=== PATIENT | male | born 1950 | race Caucasian/White ===

== ENCOUNTER → 2017-08-18 | Outpatient (CLI) | payer BC ==
[~2017-08-18] MED LIST: ATOR-54 PO; CITA20TA9 PO; GLC/500 PO; IBUP-103 PO; KRIL1CAP7 PO; LISI5TAB3 PO; MULT-106 PO; TESTOSTERONE INJ INJ; VTMD1000 PO
== END | disposition home or self-care (01) ==
LOC: C.MAMM 09:36
PROVIDERS: ATTEND Internal Medicine Endocrinology, Diabetes & Metabolism
DX: Q98.4 Klinefelter syndrome, unspecified (principal); E29.1 Testicular hypofunction

== ENCOUNTER → 2018-02-01 | Outpatient (CLI) | payer BC ==
--- NOTE | 2018-02-01 09:56 | DIAGNOSTIC IMAGING REPORT ---
LEFT AXILLARY ULTRASOUND CLINICAL HISTORY: Klinefelter syndrome. Axillary lump. COMPARISON STUDY: No previous studies for comparison. FINDINGS: Sonography of the left axilla demonstrated no mass, fluid collection, enlarged lymph node or other sonographic abnormality. IMPRESSION: No sonographic abnormality within the left axilla. Electronically signed by: Bc Foss M.D. 02/01/2018 9:55 AM Dictated Date/Time: 02/01/2018 9:54 AM
== END | disposition home or self-care (01) ==
LOC: C.ULTR 09:23
PROVIDERS: ATTEND Internal Medicine Endocrinology, Diabetes & Metabolism
DX: Q98.4 Klinefelter syndrome, unspecified (principal); R22.32 Localized swelling, mass and lump, left upper limb

== ENCOUNTER → 2018-02-09 | Outpatient (CLI) | payer BC ==
--- NOTE | 2018-02-10 07:57 | MAMMOGRAPHY REPORT ---
MALE BILATERAL DIGITAL DIAGNOSTIC MAMMOGRAM TOMOSYNTHESIS WITH CAD AND TARGETED LEFT ULTRASOUND: 2017 CLINICAL HISTORY: Palpable lump in the lateral left breast identified by the patient's provider. TECHNIQUE: Breast tomosynthesis in addition to standard 2D mammography was performed. Current study was also evaluated with a Computer Aided Detection (CAD) system. COMPARISON: No prior exams were available for comparison. BREAST COMPOSITION: The breast parenchyma is nearly entirely fat. FINDINGS: A triangular skin palpable marker overlies the lateral left breast, denoting the area of pa lpable lump identified by the patient's provider. No suspicious mass, architectural distortion or cl uster of microcalcifications is seen bilaterally. No focal skin thickening or evidence of gynecomast ia. Targeted ultrasound was performed in the area of lump pointed out by the patient, located in the 4:00 left breast, 2 cm from the nipple. In the area of palpable concern there is a soft mobile mass. On targeted ultrasound, there is an oval parallel circumscribed and encapsulated fat echotexture mass m easuring 2.6 x 0.8 x 2.4 cm. This is most compatible with a benign lipoma. IMPRESSION: ACR BI-RADS CATEGORY 2: BENIGN, TARGETED ULTRASOUND ACR BI-RADS CATEGORY 2: BENIGN There is no mammographic or targeted sonographic evidence of malignancy in the breasts. The palpable lump in the 4:00 left breast is most compatible with a benign lipoma, given the sonographic appearan ce. However, continued clinical follow-up is recommended to exclude change in size or associated chuy n. These results and recommendations were discussed with the patient at the time of the exam. Approximately 10% of breast cancers are not detected with mammography. A negative mammographic report should not delay biopsy if a clinically suggestive mass is present. Radhika Ruff M.D. ay/:02/09/2018 10:27:27 Applications Developer: Justina MAGAÑA(Marco)(Arthur), [facility] letter sent: Normal 1/2 BI-RADS Code: ACR BI-RADS Category 2: Benign Ultrasound BI-RADS: ACR BI-RADS Category 2: Benign
== END | disposition home or self-care (01) ==
LOC: C.MAMM 09:27
PROVIDERS: ATTEND Internal Medicine Endocrinology, Diabetes & Metabolism
DX: N63.20 Unspecified lump in the left breast, unspecified quadrant (principal)

== ENCOUNTER 2021-07-19 13:04 | Inpatient (IN) ==
[2021-07-19] MEDS ORDERED: SODIUM CHLORIDE 0.9% 1000ML 1,000 ML IV ONE (14:04)
[2021-07-19] MEDS ORDERED: dexAMETHasone**PF** 10 MG/ML VIAL IV ONE (14:04)
--- NOTE | 2021-07-19 14:08 | Emergency Department Note ---
Impression & Plan Hypoxia, COVID-19, Pneumonia ED Provider Note NAME: HILARIA CONDE AGE: 70 SEX: M : 1950 ARRIVES VIA: Walk-In INFORMANT: Patient ED PROVIDER(S): Dusty Tsai DO CHIEF COMPLAINT: Shortness of breath HPI: Patient is a 62-year-old male unvaccinated who presents to the ER for cough, congestion, loss of taste and smell and shortness of breath. Symptoms s tarted 8 days ago and have been gradually getting worse. Admits to nonproductive cough. He denies any belly pain but admits to some nausea. No vomiting. No dysuria urgency or frequency. No other exacerbating or remitting factors. He has been tested as an outpatient was positive for Covid. ROS: See above HPI for pertinent positives & negatives. A total of 10 systems reviewed and were otherwise negative. PAST MEDICAL HISTORY:See Below PAST SURGICAL HISTORY:See Below FAMILY HISTORY:See Below SOCIAL HISTORY:See Below HOME MEDICATIONS:See Below ALLERGIES:See Below VITALS:See Below PHYSICAL EXAMINATION: GENERAL: Sitting up in bed, alert, chronically ill-appearing, disheveled, sitting up in bed with persistent cough on 3 L nasal cannula EYE EXAM: normal conjunctiva. OROPHARYNX: no exudate, no erythema, lips, buccal mucosa, and tongue normal and mucous membranes are moist NECK: supple, no nuchal rigidity, no adenopathy, non-tender LUNGS: Diminished bilaterally. Normal chest wall mechanics HEART: no murmurs, S1 normal and S2 normal ABDOMEN: abdomen soft, non-tender, normo-active bowel sounds, no masses, no rebound or guarding. BACK: Back is symmetrical on inspection and there is no deformity, no midline tenderness, no CVA tenderness. SKIN: no rashes and no bruising UPPER EXTREMITIES: upper extremities are grossly normal. LOWER EXTREMITIES: No pitting edema. Calves are equal bilateral NEURO EXAM: Normal sensorium, cranial nerves II-XII grossly intact, normal speech, no gross weakness of arms, no gross weakness of legs. MEDICAL DECISION MAKING: Patient is a 18-year-old male who presents the ER for above-stated complaint. IV was established blood was obtained. He was found to be hypoxic. Labs show no significant leukocytosis or anemia. BMP with mild hyponatremia. Creatinine 1.4. LFTs bilirubin and troponin was negative. Lipase was slightly elevated at 700. Chest x-ray shows bilateral infiltrates. Patient remained on 4 L and was eventually switched to an oxygen mask. He was given fluids and started on steroids. Updated bedside admitted to the hospital for further work-up. Triage Nursing notes reviewed. Limited review of prior medical records performed Vital Signs: reviewed and remarkable for hypoxia Differential diagnosis: Differential diagnoses includes but is not limited to pneumonia, bronchitis, COPD/Asthma exacerbation, pneumothorax, pulmonary embolism, congestive heart failure, acute coronary syndrome ER treatment provided: See below Diagnostics interpreted by me: ECG: Sinus rhythm rate of 91 Left axis No PVCs T wave inversion in septal leads QTC 440 Cardiac Monitoring: An order was placed for continuous cardiac monitoring. The monitor shows a rate of 92 with sinus rhythm. Laboratory studies: As stated above and show below. Imaging studies: Portable AP upright 1 view of the chest shows bilateral infiltrates Consultation(s): Discussed with the hospitalist for further evaluation Procedures: none Critical Care: I have personally spent 35 minutes of critical care time in the direct management of this patient. This includes bedside care, interpretation of diagnostic studies, and testing, discussion with consultants, patient, and family members, and other required patient management activities. This 35 minutes is in excess of all separately billable procedures. Past Med/Surg History Medical History (Updated 07/19/21 @ 19:15 by Dusty Tsai DO) Diabetes Hyperlipidemia Klinefelter syndrome Surgical History (Updated 11/28/20 @ 10:16 by Sis Landry RN) History of surgery repair of lower leg break 1974 Family History (Updated 11/28/20 @ 10:18 by Sis Landry RN) Father Heart disease Denies family history of Hearing loss No family history of adverse response to anesthesia No family history of bleeding disorder Cancer Hypertension Stroke Asthma Social History (Updated 11/28/20 @ 10:20 by Sis Landry RN) Smoking Status: Never smoker Hx Alcohol Use: Yes Hx Substance Use: No Preferred Language: Persian marital status: Current Living Situation: Spouse Feels Safe at Home: Yes Allergies Allergies Allergy/AdvReac Type Severity Reaction Status Date / Time No Known Drug Allergies Allergy Unknown Verified 07/19/21 17:40 Home Meds Home Medications Medication Instructions Recorded Confirmed atorvastatin 20 mg tablet 20 mg PO QAM 02/20/19 07/19/21 cholecalciferol (vitamin D3) 25 1,000 unit PO QAM 02/20/19 07/19/21 mcg (1,000 unit) capsule (Vitamin D3) citalopram 20 mg tablet 20 mg PO QAM 02/20/19 07/19/21 krill 1 cap PO QAM 02/20/19 07/19/21 brx-zg-9-zyh-cxh-hezcwnqhakqah 300 mg-90 mg-24 mg-50 mg capsule (krill oil) liraglutide 0.6 mg/0.1 mL (18 mg/3 1.8 mg SUBCUT DAILY 02/20/19 07/19/21 mL) subcutaneous pen injector (StackAdaptza 3-Marvel) lisinopril 5 mg tablet 5 mg PO QAM 02/20/19 07/19/21 metformin 500 mg tablet 1,000 mg PO BIDM 02/20/19 07/19/21 topsxdsr-ytdjkakr-fgeav acid 400 1 tab PO QAM 02/20/19 07/19/21 mcg-vit K 20 mcg-lycop 300 mcg tablet (Men's Daily Formula) Ca 600 mg-D3 20 mcg-mag oxide 50 1 tab PO DAILY tab 08/24/19 07/19/21 yv-Lg-aewvfi-manganese-boron tablet (Calcium 600-D3 Plus (mag-zinc)) aspirin 81 mg tablet,delayed 81 mg PO DAILY 08/24/19 07/19/21 release (Adult Low Dose Aspirin) blood sugar diagnostic (OneTouch #10 ea 08/24/19 06/10/21 Ultra Blue Test Strip) montelukast 10 mg tablet 10 mg PO DAILY tab 08/24/19 07/19/21 pen needle, diabetic 32 gauge x #100 ea 08/24/19 06/10/21 1/6" (NovoFine Plus) azithromycin 250 mg tablet 250 mg PO UD 07/19/21 07/19/21 empagliflozin 25 mg tablet 25 mg PO DAILY 07/19/21 07/19/21 (Jardiance) prednisone 20 mg tablet 20 mg PO UD 07/19/21 07/19/21 Previous Rx's Medication Instructions Recorded tamsulosin 0.4 mg capsule (Flomax) 0.4 mg PO DAILY #90 cap 08/13/20 syringe with needle 3 mL 18 x 1 #10 ea 08/30/20 1/2" (BD Luer-Timothy Syringe) syringe with needle, safety 3 mL #12 ea 08/30/20 18 gauge x 1 1/2" (Easy Touch FlipLock Syringe) syringe with needle, safety 3 mL #12 ea 11/23/20 22 gauge x 1 1/2" (BD Integra Syringe) Results & Data (ED) Vital Signs Vital Signs - 24 hr 07/19/21 13:36 07/19/21 14:18 07/19/21 14:30 Temperature 36.8 C Temperature Source Temporal Artery Scan Pulse Rate 101 H 95 H 94 H Pulse Rate from SpO2 Sensor 96 H Respiratory Rate 18 26 H 32 H Respiratory Effort / Characteristics Labored Respiratory Depth Normal Respiratory Pattern Regular Blood Pressure 116/77 128/86 Blood Pressure Mean 90 100 Pulse Oximetry 88 L 93 Oxygen Delivery Method Room Air Oxygen Flow Rate Sepsis Recent Fever Within 48 Hours No Sepsis New/Unexplained Change in Mental Status No Sepsis Action Taken by Nursing No Action Required 07/19/21 14:31 07/19/21 15:00 07/19/21 15:30 Temperature Temperature Source Pulse Rate 95 H 90 Pulse Rate from SpO2 Sensor 89 Respiratory Rate 20 Respiratory Effort / Characteristics Respiratory Depth Respiratory Pattern Blood Pressure 128/82 120/80 Blood Pressure Mean 97 93 Pulse Oximetry 94 92 Oxygen Delivery Method Nasal Cannula Oxygen Flow Rate 3 Sepsis Recent Fever Within 48 Hours Sepsis New/Unexplained Change in Mental Status Sepsis Action Taken by Nursing 07/19/21 16:00 07/19/21 16:30 07/19/21 17:00 Temperature Temperature Source Pulse Rate 87 92 H 97 H Pulse Rate from SpO2 Sensor 87 94 H 97 H Respiratory Rate 30 H 31 H Respiratory Effort / Characteristics Respiratory Depth Respiratory Pattern Blood Pressure 103/68 106/70 110/62 Blood Pressure Mean 79 82 78 Pulse Oximetry 94 95 92 Oxygen Delivery Method Oxygen Flow Rate Sepsis Recent Fever Within 48 Hours Sepsis New/Unexplained Change in Mental Status Sepsis Action Taken by Nursing 07/19/21 17:30 07/19/21 18:00 07/19/21 18:30 Temperature Temperature Source Pulse Rate 94 H 89 88 Pulse Rate from SpO2 Sensor 93 H 89 86 Respiratory Rate 23 35 H 23 Respiratory Effort / Characteristics Respiratory Depth Respiratory Pattern Blood Pressure 129/72 128/83 115/77 Blood Pressure Mean 91 98 89 Pulse Oximetry 93 93 94 Oxygen Delivery Method Oxymask Oxymask Oxygen Flow Rate 7 7 Sepsis Recent Fever Within 48 Hours Sepsis New/Unexplained Change in Mental Status Sepsis Action Taken by Nursing Laboratory Data Result diagrams: 07/19/21 14:36 07/19/21 14:36 Lab Results 07/19/21 07/19/21 07/19/21 Range/Units 14:36 14:36 14:36 WBC 5.58 (4.8-10.8) K/uL RBC 4.75 (4.7-6.1) M/uL Hgb 16.0 (14.0-18.0) g/dL Hct 46.8 (42-52) % MCV 98.5 (80-100) fL MCH 33.7 (25-34) pg MCHC 34.2 (32-36) g/dL RDW Std Deviation 51.9 H (36.4-46.3) fL RDW Coeff of Gerardo 14.4 (11.5-14.5) % Plt Count 170 (130-400) K/uL MPV 9.2 (7.4-10.4) fL Immature Gran % (Auto) 0.2 % Neut % (Auto) 77.7 % Lymph % (Auto) 16.1 % [place] % (Auto) 5.6 % Eos % (Auto) 0.0 % Baso % (Auto) 0.4 % Neut # (Auto) 4.34 (1.4-6.5) K/uL Lymph # (Auto) 0.90 L (1.2-3.4) K/uL [place] # (Auto) 0.31 (0.11-0.59) K/uL Eos # (Auto) 0.00 (0-0.5) K/uL Baso # (Auto) 0.02 (0-0.2) K/uL Immature Gran # (Auto) 0.01 (0.00-0.02) K/uL APTT 29.3 (21.0-31.0) Seconds PTT Ratio 1.1 Sodium 133 L (136-145) mmol/L Potassium 4.8 (3.5-5.1) mmol/L Chloride 100 (98-107) mmol/L Carbon Dioxide 25 (21-32) mmol/L Anion Gap 8.0 (3-11) BUN 26 H (7-18) mg/dl Creatinine 1.43 H (0.6-1.4) mg/dl Est Cr Clr Drug Dosing 50.3 ml/min Est GFR ( Amer) 57.9 ml/min Est GFR (Non-Af Amer) 50.0 ml/min BUN/Creatinine Ratio 18.2 (10-20) Glucose 173 H (70-99) mg/dl Calcium 8.8 (8.5-10.1) mg/dl Total Bilirubin 0.4 (0.2-1) mg/dl AST 58 H (15-37) U/L ALT 27 (12-78) U/L Alkaline Phosphatase 94 (45-117) U/L Troponin I < 0.015 (0-0.045) ng/ml Total Protein 8.1 (6.4-8.2) gm/dl Albumin 2.9 L (3.4-5.0) gm/dl Globulin 5.2 H (2.5-4.0) gm/dl Albumin/Globulin Ratio 0.6 L (0.9-2) Lipase 762 H (73-393) U/L Specimen Hemolysis COVID-19 Eval Order SARS-CoV-2 (PCR) (Negative) 07/19/21 07/19/21 Range/Units 14:36 14:36 WBC (4.8-10.8) K/uL RBC (4.7-6.1) M/uL Hgb (14.0-18.0) g/dL Hct (42-52) % MCV (80-100) fL MCH (25-34) pg MCHC (32-36) g/dL RDW Std Deviation (36.4-46.3) fL RDW Coeff of Gerardo (11.5-14.5) % Plt Count (130-400) K/uL MPV (7.4-10.4) fL Immature Gran % (Auto) % Neut % (Auto) % Lymph % (Auto) % [place] % (Auto) % Eos % (Auto) % Baso % (Auto) % Neut # (Auto) (1.4-6.5) K/uL Lymph # (Auto) (1.2-3.4) K/uL [place] # (Auto) (0.11-0.59) K/uL Eos # (Auto) (0-0.5) K/uL Baso # (Auto) (0-0.2) K/uL Immature Gran # (Auto) (0.00-0.02) K/uL APTT (21.0-31.0) Seconds PTT Ratio Sodium (136-145) mmol/L Potassium (3.5-5.1) mmol/L Chloride (98-107) mmol/L Carbon Dioxide (21-32) mmol/L Anion Gap (3-11) BUN (7-18) mg/dl Creatinine (0.6-1.4) mg/dl Est Cr Clr Drug Dosing ml/min Est GFR ( Amer) ml/min Est GFR (Non-Af Amer) ml/min BUN/Creatinine Ratio (10-20) Glucose (70-99) mg/dl Calcium (8.5-10.1) mg/dl Total Bilirubin (0.2-1) mg/dl AST (15-37) U/L ALT (12-78) U/L Alkaline Phosphatase (45-117) U/L Troponin I (0-0.045) ng/ml Total Protein (6.4-8.2) gm/dl Albumin (3.4-5.0) gm/dl Globulin (2.5-4.0) gm/dl Albumin/Globulin Ratio (0.9-2) Lipase (73-393) U/L Specimen Hemolysis COVID-19 Eval Order Covid19 at [facility] SARS-CoV-2 (PCR) POSITIVE A* (Negative) Administered Medications Discontinued Medications Dexamethasone Sodium Phosphate (DexamethasonePf 10 Mg/Ml Vial) 8 mg IV NOW ONE Stop: 07/19/21 14:05 Last Admin: 07/19/21 14:29 Dose: 8 mg Documented by: [id number] Sodium Chloride (Nss 1000ml) 1,000 mls @ 999 mls/hr IV .Q1H1M ONE Stop: 07/19/21 15:04 Last Infusion: 07/19/21 19:02 Dose: 0 mls/hr Documented by: [id number] Admin: 07/19/21 14:29 Dose: 999 mls/hr Documented by: [id number] Imaging Data Radiologist's Impression: Chest X-Ray 07/19/21 14:05 XR chest 1V portable INDICATION: MN ^Y ^Chest Pain . TECHNIQUE: Single frontal radiograph of the chest was obtained. Comparison: Comparison is made to chest 2 views 01/02/2021 FINDINGS: No lines and tubes are seen. The cardiomediastinal silhouette is normal. Lungs are underinflated. Airspace opacities are seen bilaterally. There is cephalization of the vasculature. No evidence of pleural effusion or pneumothorax. IMPRESSION: 1. Underinflated lungs with airspace opacities which likely represent aspiration, pneumonia, and/or atelectasis. 2. Likely mild pulmonary edema. ACT 112: Negative or not required by law. Electronically signed by: Stan Dee M.D. 07/19/2021 3:30 PM Discharge Plan Visit Data Chief Complaint: Shortness of Breath/Dyspnea Stated Complaint: POSITIVE FOR COVID ED Provider: Dusty Tsai Discharge Problem: Hypoxia, COVID-19, Pneumonia Forms Stand Alone Forms: [facility] [employer] Prescriptions Prescriptions: No Action (DME) Easy Touch FlipLock Syringe 3 mL 18 gauge x 1 1/2" syringe See Rx Instructions .ROUTE .MEDSUPPLY Qty: 12 RF: 3 (DME) BD Luer-Timothy Syringe 3 mL 18 x 1 1/2" syringe See Rx Instructions .ROUTE .MEDSUPPLY Qty: 10 RF: 3 (DME) BD Integra Syringe 3 mL 22 gauge x 1 1/2" syringe See Rx Instructions .ROUTE .MEDSUPPLY Qty: 12 RF: 3 tamsulosin [Flomax] 0.4 mg capsule 0.4 mg PO DAILY Qty: 90 RF: 3 montelukast 10 mg tablet 10 mg PO DAILY RF: 0 (DME) NovoFine Plus 32 gauge x 1/6" needle See Dose Instructions .ROUTE .MEDSUPPLY Qty: 100 RF: 0 aspirin [Adult Low Dose Aspirin] 81 mg tablet,delayed release (DR/EC) 81 mg PO DAILY RF: 0 Ca-D3-mag di-ujko-mvt-joie-bor [Calcium 600-D3 Plus (mag-zinc)] 600 mg calcium- 800 unit-50 mg tablet 1 tab PO DAILY RF: 0 (DME) OneTouch Ultra Blue Test Strip strip See Dose Instructions .ROUTE .MEDSUPPLY Qty: 10 RF: 0 metformin 500 mg Tablet 1,000 mg PO BIDM RF: 0 atorvastatin 20 mg tablet 20 mg PO QAM RF: 0 citalopram 20 mg tablet 20 mg PO QAM RF: 0 lisinopril 5 mg Tablet 5 mg PO QAM RF: 0 cholecalciferol (vitamin D3) [Vitamin D3] 1,000 unit Capsule 1,000 unit PO QAM RF: 0 Victoza 3-Marvel 0.6 mg/0.1 mL (18 mg/3 mL) pen injector 1.8 mg subcut DAILY RF: 0 Men's Daily Formula 400-20-300 mcg Tablet 1 tab PO QAM RF: 0 wotvg-zgjyn-3-qgt-uxp-wzlhii [krill oil] 551-27-00-50 mg Capsule 1 cap PO QAM RF: 0 azithromycin 250 mg tablet 250 mg PO UD RF: 0 prednisone 20 mg tablet 20 mg PO UD RF: 0 Jardiance 25 mg tablet 25 mg PO DAILY RF: 0 Referrals Referrals: Del Malik [Primary Care Provider] - Discharge Problem: Pneumonia Qualifiers: Pneumonia type: due to unspecified organism Laterality: unspecified laterality Lung location: unspecified part of lung Qualified Code(s): J18.9 - Pneumonia, unspecified organism
[2021-07-19 14:46] LABS: Basophils # (auto) 0.02 K/uL (0-0.2); Basophils % (auto) 0.4 %; Hematocrit (blood only) 46.8 % (42-52); Immature Granulocytes # (auto) 0.01 K/uL (0.00-0.02); Immature Granulocytes % (auto) 0.2 %; Lymphocytes % (auto) 16.1 %; Mean Corpuscular Hemoglobin 33.7 pg (25-34); Mean Corpuscular Hgb Conc 34.2 g/dL (32-36); Mean Corpuscular Volume 98.5 fL (80-100); Mean Platelet Volume 9.2 fL (7.4-10.4); Monocytes # (auto) 0.31 K/uL (0.11-0.59); Monocytes % (auto) 5.6 %; Neutrophils # (auto) 4.34 K/uL (1.4-6.5); Neutrophils % (auto) 77.7 %; Platelet Count 170 K/uL (130-400); RDW Coefficient of Variation 14.4 % (11.5-14.5); RDW Standard Deviation 51.9 fL (36.4-46.3); Red Blood Count 4.75 M/uL (4.7-6.1); White Blood Count 5.58 K/uL (4.8-10.8)
[2021-07-19 14:56] LABS: Partial Thromboplastin Ratio 1.1; Partial Thromboplastin Time 29.3 Seconds (21.0-31.0)
[2021-07-19 15:09] LABS: Alanine Aminotransferase 27 U/L (12-78); Albumin Globulin Ratio 0.6 (0.9-2); Albumin Level 2.9 gm/dl (3.4-5.0); Alkaline Phosphatase 94 U/L (45-117); Aspartate Aminotransferase 58 U/L (15-37); BUN Creatinine Ratio 18.2 (10-20); Bilirubin,Total 0.4 mg/dl (0.2-1); Blood Urea Nitrogen 26 mg/dl (7-18); Calcium 8.8 mg/dl (8.5-10.1); Carbon Dioxide 25 mmol/L (21-32); Chloride 100 mmol/L (98-107); Creatinine Clr Calc Pharmacy 50.3 ml/min; Est GFR (African American) 57.9 ml/min; Globulin 5.2 gm/dl (2.5-4.0); Glucose 173 mg/dl (70-99); Lipase 762 U/L (73-393); Potassium 4.8 mmol/L (3.5-5.1); Sodium 133 mmol/L (136-145); Total Protein 8.1 gm/dl (6.4-8.2); Troponin I < 0.015 ng/ml (0-0.045)
--- NOTE | 2021-07-19 15:32 | XRay Report ---
XR chest 1V portable INDICATION: MN ^Y ^Chest Pain . TECHNIQUE: Single frontal radiograph of the chest was obtained. Comparison: Comparison is made to chest 2 views 01/02/2021 FINDINGS: No lines and tubes are seen. The cardiomediastinal silhouette is normal. Lungs are underinflated. Air space opacities are seen bilaterally. There is cephalization of the vasculature. No evidence of pleur al effusion or pneumothorax. IMPRESSION: 1. Underinflated lungs with airspace opacities which likely represent aspiration, pneumonia, and/or atelectasis. 2. Likely mild pulmonary edema. ACT 112: Negative or not required by law. Electronically signed by: Stan Dee M.D. 07/19/2021 3:30 PM
--- NOTE | 2021-07-19 16:42 | History & Physical Report ---
Date of Service July 19, 2021 Assessment & Plan (1) Acute respiratory failure with hypoxia: Plan: Pepe Valente is a 70-year-old Covid-unvaccinated male with a past medical history of sensorineural hearing loss, Klinefelter syndrome, prostate cancer and BPH with LUTS, type 2 diabetes mellitus, hypertension, primary testicular hypogonadism, and hyperlipidemia who presents with hypoxia 2/2 Covid pneumonia. Acute hypoxic respiratory failure 2/2 COVID-19 pneumonia Symptom onset approximately 8 days ago Oxygen saturation initially 84% per ER, improved to 94% on 4 L nasal cannula Afebrile, No leukocytosis -CXR: Underinflated film, bilateral airspace opacities appreciated with cephalization of vasculature. No signs of pleural effusion/pneumothorax. Possible mild pulmonary edema. Patient clinically dry with elevated creatinine/BUN. EKG: Normal sinus rhythm, incomplete right bundle branch block. EKG 04/02/2016 compared, sinus bradycardia at that time with RSR prime/QR pattern in V1 and similar morphology in V3 appreciated. Elevated lipase, trace elevated AST suspect volume depletion. Conservative fluids, trend Troponin negative Admit to medical surgical for management of Covid Titrate oxygen to SPO2 greater than 90% Continue dexamethasone 6 mg daily Remdesivir/tocalizumab not indicated at this time (2) Pneumonia due to COVID-19 virus: Plan: -Management as discussed in acute hypoxic respiratory failure. (3) Creatinine elevation: Plan: Cr Elevation, ?Prerenal azotemia vs mild YAQUELIN -Creatinine baseline approximately 1, acutely elevated to 1.43 with elevated BUN Suspect prerenal azotemia, received 1 L NSS in ER. Cautious fluid hydration given Covid pneumonia and preference for maintaining slightly dry status BMP in a.m. Hold home lisinopril (4) Klinefelter syndrome: Plan: Klinefelter syndrome Reports gets testosterone injections q. 10 days, is not sure about next required dose but believes it is sometime this week Defer in the setting of acute Covid pneumonia No acute change in management at this time (5) Type 2 diabetes mellitus: Plan: - Hold home metformin, victoza - Insulin weight based - Goal BSG 100-140, CF:30 , Ratio:10 - Glargine: 14 - Glucose checks AC/at bedtime A1c pending Pharmacy consult placed for hyperglycemia management with steroid treatment (6) Elevated PSA: Plan: Follow clinically for LUTS Tamsulosin 0.4 mg daily Bladder scan per protocol No acute management, may resume outpatient follow-up on discharge (7) Sensorineural hearing loss (SNHL): Plan: Stable, delirium precautions (8) Hypertension: Plan: Discussed with patient, he reports he is unaware that he has a diagnosis of hypertension but notes he is on lisinopril. Believes that this was for his diabetes management, on lisinopril he reports his blood pressure is normal in the 100s over 80s at home Lisinopril held for azotemia/YAQUELIN Normotensive at time of admit (9) Primary testicular hypogonadism: Plan: Testosterone temporarily held, patient typically receives testosterone injections every 10 days (10) Hyperlipidemia: Plan: Atorvastatin temporarily held, resume when LFTs normalize (11) DVT prophylaxis: Plan: - Covid lovenox 40mg BID ppx - Diet: DM Diet - Dispo: Med/Surg, COVID - Code status: Full Code History of Present Illness Primary Care Provider: Del Malik Pepe Valente is a 70-year-old Covid-unvaccinated male with a past medical history of sensorineural hearing loss, Klinefelter syndrome, prostate cancer and BPH with LUTS, type 2 diabetes mellitus, hypertension, primary testicular hypogonadism, and hyperlipidemia who presents with hypoxia 2/2 Covid pneumonia. Pepe reports he was diagnosed with COVID yesterday and presented to the ER today at the recommendation of his PCP. Sx began 8 days ago with fatigue, 'slow and sluggish', and night 'took a turn for the worse and started getting chills which worsened over the next 2-3 days.' Endorses sore throat and dry nonproductive cough. Denies nausea/vomiting. Endorses loose diarrhea with no blood or melena. Reports no appetite and 'just can't eat, I'm not hungry.' Endorses shortness of breath while coughing and with exertion, none at rest. Lives with his who is also being admitted for COVID and who passed out in her chair at home. Notes he goes to baptism at [place] who has had several people diagnosed with covid recently. He denies a past history of blood clots, although has been on testosterone therapy for Klinefelter's and notes he has been told that this can make his blood "thicker ". He thinks he is due for shot this week, but does not remember the date. Medical History: Reviewed. T2DM on victoza, metformin, and inuslin aspart. On lisinopril for renal protection, denies hx of HTN. Has Kleinfelters syndrome and takes injections of testosterone every 10 days but does not remember when his next injection is due. Medications: Reviewed. No longer on singular, tried for headache/congestion in the past with no benefit. Surgical History: Reviewed Allergies: Reviewed Social History: No history of lung disease. No tobacco use. 1-3 beers per night, last drink >14 days ago with no withdrawal symtpms. Surrogate decision maker would be Lillie. Code Status: Full Code, discussed with patient Allergies Allergy/AdvReac Type Severity Reaction Status Date / Time No Known Drug Allergies Allergy Unknown Verified 07/19/21 17:40 Home Medications Medication Instructions Recorded Confirmed Type atorvastatin 20 mg tablet 20 mg PO QAM 02/20/19 06/10/21 History cholecalciferol (vitamin D3) 25 1,000 unit PO QAM 02/20/19 06/10/21 History mcg (1,000 unit) capsule (Vitamin D3) citalopram 20 mg tablet 20 mg PO QAM 02/20/19 06/10/21 History empagliflozin 10 mg tablet 10 mg PO QAM 02/20/19 06/10/21 History (Jardiance) ibuprofen 200 mg tablet 200 mg PO QID PRN 02/20/19 06/10/21 History krill 1 cap PO QAM 02/20/19 06/10/21 History exf-gr-9-rez-czx-arwswoocwgcoy 300 mg-90 mg-24 mg-50 mg capsule (krill oil) liraglutide 0.6 mg/0.1 mL (18 mg/3 1.8 mg SUBCUT DAILY 02/20/19 06/10/21 History mL) subcutaneous pen injector (Victoza 3-Marvel) lisinopril 5 mg tablet 5 mg PO QAM 02/20/19 06/10/21 History metformin 500 mg tablet 1,000 mg PO BIDM 02/20/19 06/10/21 History tatgypot-uowdauyc-bugwu acid 400 1 tab PO QAM 02/20/19 06/10/21 History mcg-vit K 20 mcg-lycop 300 mcg tablet (Men's Daily Formula) Ca 600 mg-D3 20 mcg-mag oxide 50 1 tab PO DAILY tab 08/24/19 06/10/21 History iu-Qh-dcjngl-manganese-boron tablet (Calcium 600-D3 Plus (mag-zinc)) aspirin 81 mg tablet,delayed 81 mg PO DAILY 08/24/19 06/10/21 History release (Adult Low Dose Aspirin) blood sugar diagnostic (OneTouch #10 ea 08/24/19 06/10/21 History Ultra Blue Test Strip) montelukast 10 mg tablet 10 mg PO DAILY tab 08/24/19 06/10/21 History naproxen sodium 220 mg capsule 220 mg PO BID PRN 08/24/19 06/10/21 History (Aleve) pen needle, diabetic 32 gauge x #100 ea 08/24/19 06/10/21 History 1/6" (NovoFine Plus) tamsulosin 0.4 mg capsule (Flomax) 0.4 mg PO DAILY #90 cap 08/13/20 06/10/21 Rx syringe with needle 3 mL 18 x 1 #10 ea 08/30/20 06/10/21 Rx 1/2" (BD Luer-Timothy Syringe) syringe with needle, safety 3 mL #12 ea 08/30/20 06/10/21 Rx 18 gauge x 1 1/2" (Easy Touch FlipLock Syringe) testosterone cypionate 100 mg/mL 100 mg IM .COMPLEX 90 Days #30 ml 08/30/20 06/10/21 Rx intramuscular oil syringe with needle, safety 3 mL #12 ea 11/23/20 06/10/21 Rx 22 gauge x 1 1/2" (BD Integra Syringe) azithromycin 250 mg tablet 250 mg PO UD 07/19/21 07/19/21 History Past Med/Surg History Medical History (Updated 07/19/21 @ 17:29 by Jose Smith MD) Diabetes Hyperlipidemia Klinefelter syndrome Surgical History (Updated 11/28/20 @ 10:16 by Sis Landry, KELLI) History of surgery repair of lower leg break 1974 Family History (Updated 11/28/20 @ 10:18 by Sis Landry, KELLI) Father Heart disease Denies family history of Hearing loss No family history of adverse response to anesthesia No family history of bleeding disorder Cancer Hypertension Stroke Asthma Social History (Updated 11/28/20 @ 10:20 by Sis Landry RN) Smoking Status: Never smoker Hx Alcohol Use: Yes Hx Substance Use: No Preferred Language: Urdu marital status: Current Living Situation: Spouse Feels Safe at Home: Yes Review of Systems Review of Systems: Constitutional: See HPI Eyes: Denies vision change ENT: Denies ear pain, sore throat, sinus pain Cardiovascular: Denies Chest pain, chest pressure, palpitations, extremity swelling Respiratory: See HPI Gastrointestinal: See HPI Genitourinary: Denies dysuria, urinary frequency Musculoskeletal: endorses global fatigue without acute focal weakness, muscle aches/pain, joint aches/pain Integumentary:Denies acute rash, lesions, bruising Neurological: Endorses headache, denies numbness, tingling, focal weakness Physical Exam Physical Exam: General: A&Ox3. NAD. Cooperative. HEENT: Atraumatic, normocephalic. Pulm: Managed in the bases, without overt rales/wheezes. On nasal cannula. Symmetrical chest rise. No increase work of breathing. No respiratory distress. Cardiac: RRR, -mrg. Radial pulses intact and symmetrical. No JVD appreciated. Abdominal: Nontender, nondistended, soft. BS present. Extremities: Moving all extremities equally, sensation to soft touch intact in hands and feet. Ankle plantarflexion/dorsiflexion public area attendant strength, elbow flexion/ extension 5/5 without asymmetry. Radial and PT pulses intact bilaterally without asymmetry. Results & Data Results & Data ([facility]) Vital Signs (Past 12 Hours) Vital Signs Temp Pulse Resp BP Pulse Ox 07/19/21 16:00 87 103/68 94 07/19/21 15:30 90 120/80 92 07/19/21 15:00 95 H 20 128/82 07/19/21 14:31 94 07/19/21 14:30 94 H 32 H 128/86 07/19/21 14:18 95 H 26 H 116/77 93 07/19/21 13:36 36.8 C 101 H 18 88 L Laboratory Results Abnormal lab results 07/19/21 07/19/21 07/19/21 Range/Units 14:36 14:36 14:36 RDW Std Deviation 51.9 H (36.4-46.3) fL Lymph # (Auto) 0.90 L (1.2-3.4) K/uL Sodium 133 L (136-145) mmol/L BUN 26 H (7-18) mg/dl Creatinine 1.43 H (0.6-1.4) mg/dl Glucose 173 H (70-99) mg/dl AST 58 H (15-37) U/L Albumin 2.9 L (3.4-5.0) gm/dl Globulin 5.2 H (2.5-4.0) gm/dl Albumin/Globulin Ratio 0.6 L (0.9-2) Lipase 762 H (73-393) U/L SARS-CoV-2 (PCR) POSITIVE A* (Negative) Diagnostic Findings Chest X-Ray 07/19/21 14:05 XR chest 1V portable INDICATION: MN ^Y ^Chest Pain . TECHNIQUE: Single frontal radiograph of the chest was obtained. Comparison: Comparison is made to chest 2 views 01/02/2021 FINDINGS: No lines and tubes are seen. The cardiomediastinal silhouette is normal. Lungs are underinflated. Airspace opacities are seen bilaterally. There is cephalization of the vasculature. No evidence of pleural effusion or pneumothorax. IMPRESSION: 1. Underinflated lungs with airspace opacities which likely represent aspiration, pneumonia, and/or atelectasis. 2. Likely mild pulmonary edema. ACT 112: Negative or not required by law. Electronically signed by: Stan Dee M.D. 07/19/2021 3:30 PM Medications Administered Home Medications atorvastatin 20 mg tablet 20 mg PO QAM 02/20/19 [History Confirmed 06/10/21] cholecalciferol (vitamin D3) 25 mcg (1,000 unit) capsule (Vitamin D3) 1,000 unit PO QAM 02/20/19 [History Confirmed 06/10/21] citalopram 20 mg tablet 20 mg PO QAM 02/20/19 [History Confirmed 06/10/21] empagliflozin 10 mg tablet (Jardiance) 10 mg PO QAM 02/20/19 [History Confirmed 06/10/21] ibuprofen 200 mg tablet 200 mg PO QID PRN 02/20/19 [History Confirmed 06/10/21] krill vcw-mw-6-ppr-ljh-obafyfddmdxtv 300 mg-90 mg-24 mg-50 mg capsule (krill oil) 1 cap PO QAM 02/20/19 [History Confirmed 06/10/21] liraglutide 0.6 mg/0.1 mL (18 mg/3 mL) subcutaneous pen injector (Victoza 3-Marvel) 1.8 mg SUBCUT DAILY 02/20/19 [History Confirmed 06/10/21] lisinopril 5 mg tablet 5 mg PO QAM 02/20/19 [History Confirmed 06/10/21] metformin 500 mg tablet 1,000 mg PO BIDM 02/20/19 [History Confirmed 06/10/21] vhjipjzt-scqqrpdd-cueub acid 400 mcg-vit K 20 mcg-lycop 300 mcg tablet (Men's Daily Formula) 1 tab PO QAM 02/20/19 [History Confirmed 06/10/21] Ca 600 mg-D3 20 mcg-mag oxide 50 qb-Ib-obphrg-manganese-boron tablet (Calcium 600-D3 Plus (mag-zinc)) 1 tab PO DAILY tab 08/24/19 [History Confirmed 06/10/21] aspirin 81 mg tablet,delayed release (Adult Low Dose Aspirin) 81 mg PO DAILY 08/24/19 [History Confirmed 06/10/21] blood sugar diagnostic (OneTouch Ultra Blue Test Strip) #10 ea 08/24/19 [History Confirmed 06/10/21] montelukast 10 mg tablet 10 mg PO DAILY tab 08/24/19 [History Confirmed 06/10/21] naproxen sodium 220 mg capsule (Aleve) 220 mg PO BID PRN 08/24/19 [History Confirmed 06/10/21] pen needle, diabetic 32 gauge x 1/6" (NovoFine Plus) #100 ea 08/24/19 [History Confirmed 06/10/21] tamsulosin 0.4 mg capsule (Flomax) 0.4 mg PO DAILY #90 cap 08/13/20 [Rx Confirmed 06/10/21] syringe with needle 3 mL 18 x 1 1/2" (BD Luer-Timothy Syringe) #10 ea 08/30/20 [Rx Confirmed 06/10/21] syringe with needle, safety 3 mL 18 gauge x 1 1/2" (Easy Touch FlipLock Syringe) #12 ea 08/30/20 [Rx Confirmed 06/10/21] testosterone cypionate 100 mg/mL intramuscular oil 100 mg IM .COMPLEX 90 Days #30 ml 08/30/20 [Rx Confirmed 06/10/21] syringe with needle, safety 3 mL 22 gauge x 1 1/2" (BD Integra Syringe) #12 ea 11/23/20 [Rx Confirmed 06/10/21] PG Care Time/CCT Total # of Minutes Spent Total Time Spent with Patient: Total time spent is greater than 50% in coordination of care (as documented) at patient's floor/unit and/or counseling patient: Coding Level of Care Code 76797 Initial Inpt Care Lvl 3 Diagnoses Acute respiratory failure with hypoxia J96.01 Pneumonia due to COVID-19 virus U07.1; J12.82 Sensorineural hearing loss (SNHL) H90.5 Klinefelter syndrome Q98.4 Type 2 diabetes mellitus E11.9 Elevated PSA R97.20 Hypertension I10 Primary testicular hypogonadism E29.1 Hyperlipidemia E78.5 DVT prophylaxis Z29.9 Creatinine elevation R79.89
--- NOTE | 2021-07-19 18:07 | Electrocardiogram Report ---
Test Reason : Blood Pressure : / mmHG Vent. Rate : 091 BPM Atrial Rate : 091 BPM P-R Int : 144 ms QRS Dur : 096 ms QT Int : 358 ms P-R-T Axes : 051 -19 024 degrees QTc Int : 440 ms Poor data quality, interpretation may be adversely affected Normal sinus rhythm Incomplete right bundle branch block Borderline ECG When compared with ECG of 02-APR-2016 11:43, Vent. rate has increased BY 39 BPM Confirmed by Tc Gong ([id number]) on 07/19/2021 6:06:57 PM Referred By: REFERRED SELF Confirmed By:Slava Gong
[2021-07-19] MEDS ORDERED: GLUCAGON FOR INJ 1 MG VIAL SQ PRN (21:52)
[2021-07-19] MEDS ORDERED: PHARMACY GLYCEMIC MGMT CONSULT PRN (21:52)
[2021-07-19] MEDS ORDERED: GLUCOSE 10 TABS/TUBE PO PRN (21:52)
[2021-07-19] MEDS ORDERED: GLUCOSE 40% GEL 15 GM TUBE PO PRN (21:52)
[2021-07-19] MEDS ORDERED: DEXTROSE 50% 50 ML SYRINGE IV PRN (21:52)
[2021-07-19] MEDS ORDERED: PNEUMOCOCCAL POLYSACCHARIDES 25 MCG/0.5 ML VIAL/SYR IM ONE (22:13)
[2021-07-19] MEDS: ENOXAPARIN INJ 40 MG/0.4 ML SYR SQ SCH (22:52)
[2021-07-19] MEDS: INSULIN GLARGINE SOLOSTAR 100 UNITS/ML 3 ML PEN SC SCH (22:52)
[2021-07-19] MEDS: INSULIN ASPART 100 UNITS/ML 3 ML PEN SC SCH (22:53)
[2021-07-20] MEDS ORDERED: INSULIN ASPART 100 UNITS/ML 3 ML PEN SC SCH (03:00)
[2021-07-20 07:58] LABS: Basophils # (auto) 0.01 K/uL (0-0.2); Basophils % (auto) 0.2 %; Hematocrit (blood only) 46.5 % (42-52); Hemoglobin 15.7 g/dL (14.0-18.0); Immature Granulocytes # (auto) 0.02 K/uL (0.00-0.02); Immature Granulocytes % (auto) 0.4 %; Lymphocytes # (auto) 0.81 K/uL (1.2-3.4); Lymphocytes % (auto) 15.5 %; Mean Corpuscular Hgb Conc 33.8 g/dL (32-36); Mean Corpuscular Volume 97.7 fL (80-100); Mean Platelet Volume 9.5 fL (7.4-10.4); Monocytes # (auto) 0.35 K/uL (0.11-0.59); Monocytes % (auto) 6.7 %; Neutrophils # (auto) 4.04 K/uL (1.4-6.5); Neutrophils % (auto) 77.2 %; Platelet Count 207 K/uL (130-400); RDW Coefficient of Variation 14.4 % (11.5-14.5); RDW Standard Deviation 51.2 fL (36.4-46.3); Red Blood Count 4.76 M/uL (4.7-6.1); White Blood Count 5.23 K/uL (4.8-10.8)
[2021-07-20 08:38] LABS: Albumin Level 2.7 gm/dl (3.4-5.0); BUN Creatinine Ratio 30.6 (10-20); Calcium 9.1 mg/dl (8.5-10.1); Creatinine Clr Calc Pharmacy 63.6 ml/min; Est GFR (Non-African American) 66.4 ml/min; Potassium 4.5 mmol/L (3.5-5.1)
[2021-07-20 08:41] LABS: Albumin Globulin Ratio 0.6 (0.9-2); Bilirubin,Total 0.4 mg/dl (0.2-1); Globulin 4.7 gm/dl (2.5-4.0); Total Protein 7.4 gm/dl (6.4-8.2)
[2021-07-20] MEDS: dexAMETHasone 6 MG in SYRINGE 0 ML IV SCH (09:08)
[2021-07-20] MEDS: TAMSULOSIN HCL 0.4 MG CAP PO SCH (09:10)
[2021-07-20 09:11] LABS: Estimated Average Glucose 212 mg/dl
[2021-07-20] MEDS: ENOXAPARIN INJ 40 MG/0.4 ML SYR SQ SCH ×2 (09:11→20:48)
[2021-07-20] MEDS: INSULIN ASPART 100 UNITS/ML 3 ML PEN SC SCH ×4 (09:21→20:49)
[2021-07-20] MEDS: INSULIN GLARGINE SOLOSTAR 100 UNITS/ML 3 ML PEN SC SCH ×2 (09:22→20:48)
[2021-07-20] MEDS: INSULIN HUMAN NPH SC SCH (09:22)
--- NOTE | 2021-07-20 10:22 | Pharmacy Report ---
Pharmacy Glycemic Short Note 2 - Date of Service July 20, 2021 - Glycemic Short BSG Results (Last 24 hours): 07/19/21 07/19/21 07/20/21 14:36 22:19 02:55 Glucose 173 H POC Glucose 244 H 402 H* 07/20/21 07/20/21 07/20/21 02:56 02:56 07:06 Glucose 203 H POC Glucose 338 H* 328 H* 07/20/21 07:27 Glucose POC Glucose 195 H OUTPATIENT ANTIDIABETIC REGIMEN: * Metformin 1000mg PO BID * Victoza 1.8mg SQ daily * Empagliflozin 25mg PO Daily ASSESSMENT: * 70 year old male PMH sensorineural hearing loss, Klinefelter syndrome, prostate cancer and BPH with LUTS, type 2 DM, HTN, HL, primary testicular hypogonadism, with COVID 19 pnx on IV steroids. * Started on Lantus for basal coverage last night, will continue to cover basal needs, and add NPH to cover steroid effects on blood sugars. * Tighten CF/CR for better glycemic control. PLAN FOR INPATIENT GLYCEMIC CONTROL: * Hold outpatient diabetes medications * Basal insulin * Lantus 20 units SQ BID * NPH 32 units (0.4units/kg) SQ daily with IV Dexamethasone (hold if dexamethasone held) * Bolus insulin * NovoLog per scale ACHS or Q6hrs while NPO * Goal Range: Low 110 mg/dL - High 140 mg/dL * Correction Factor: 20 mg/dL/unit * Nutritional / Prandial insulin per carb ratio of 1 unit per 6 grams CHO consumed PLAN FOR DISCHARGE: * A1c 9%, above goal for patient, if patient is compliant with home medications, recommend DC empagliflozin & Victoza and starting basal bolus insulin if patient agreeable. * Support Patient Self-Management Healthy Lifestyle (diet, exercise, and smoking cessation) Disease self-management (SMBG) Prevention of complications (BP, Lipid goals, Immunizations) Consider outpatient Diabetes Self-Management Education & Support
--- NOTE | 2021-07-20 12:27 | Hospitalist Progress Note ---
Date of Service July 20, 2021 Assessment & Plan (1) Acute respiratory failure with hypoxia: Plan: Pepe Valente is a 70-year-old Covid-unvaccinated male with a past medical history of sensorineural hearing loss, Klinefelter syndrome, prostate cancer and BPH with LUTS, type 2 diabetes mellitus, hypertension, primary testicular hypogonadism, and hyperlipidemia who presents with hypoxia 2/2 Covid pneumonia. Acute hypoxic respiratory failure 2/2 COVID-19 pneumonia Symptom onset approximately 8 days prior to admission Requiring 10 L oxygen mask at this point but in no respiratory distress -CXR: Underinflated film, bilateral airspace opacities appreciated with cephalization of vasculature. No signs of pleural effusion/pneumothorax. Possible mild pulmonary edema. Patient clinically dry with elevated creatinine/BUN. EKG: Normal sinus rhythm, incomplete right bundle branch block. EKG 04/02/2016 compared, sinus bradycardia at that time with RSR prime/QR pattern in V1 and similar morphology in V3 appreciated. Elevated lipase, trace elevated AST-likely secondary to viral syndrome Troponin negative -Continue prone positioning, added on flutter valve and incentive spirometry Titrate oxygen to SPO2 greater than 90% Continue dexamethasone 6 mg daily x10-day course Remdesivir/tocilizumab not indicated at this time (2) Pneumonia due to COVID-19 virus: Plan: -Management as discussed in acute hypoxic respiratory failure. (3) Creatinine elevation: Plan: With acute kidney injury-prerenal secondary to dehydration Now improved after gentle IV fluid hydration No further IV fluids needed Follow BMP Hold home lisinopril (4) Klinefelter syndrome: Plan: Klinefelter syndrome Reports gets testosterone injections q. 10 days, is not sure about next required dose but believes it is sometime this week Can be brought in from home (5) Type 2 diabetes mellitus: Plan: - Hold home metformin, victoza With severe hyperglycemia upon admission with glucose in the 400s likely secondary to corticosteroids -Hemoglobin A1c uncontrolled at 9.0% Pharmacy consult placed for hyperglycemia management with steroid treatment Continue Lantus and NovoLog and NPH while on steroids (6) Elevated PSA: Plan: Follow clinically for LUTS Tamsulosin 0.4 mg daily Bladder scan per protocol No acute management, may resume outpatient follow-up on discharge (7) Sensorineural hearing loss (SNHL): Plan: Stable, delirium precautions (8) Hypertension: Plan: Discussed with patient, he reports he is unaware that he has a diagnosis of hypertension but notes he is on lisinopril. Believes that this was for his diabetes management, on lisinopril he reports his blood pressure is normal in the 100s over 80s at home Lisinopril held for azotemia/YAQUELIN Normotensive at time of admit (9) Primary testicular hypogonadism: Plan: Testosterone temporarily held, patient typically receives testosterone injections every 10 days (10) Hyperlipidemia: Plan: Atorvastatin temporarily held, resume when LFTs normalize (11) Insomnia: Plan: Add melatonin for tonight (12) Elevated lipase: Plan: Elevated in the 700s, no abdominal pain Likely secondary to viral infection Follow level in the morning and watch for signs of clinical pancreatitis (13) DVT prophylaxis: Plan: - Covid lovenox 40mg BID ppx - Dispo: Med/Surg, COVID unit - Code status: Full Code Admission and Anticipated Discharge Date Admission Date: July 19, 2021 Subjective Patient reports feeling better. He remains on 10 L and is practicing proning and laying on his side. He is using his flutter valve. He denies much cough. No nausea or vomiting, no diarrhea, no abdominal pain. Telemetry with normal sinus rhythm with rates in 70s to 80s Review of Systems Review of Systems: All systems reviewed & are unremarkable except as noted in HPI & below He is having insomnia and requests something for sleep Physical Exam Constitutional: WD/WN, vitals as above Eyes: + anicteric sclerae Neck: trachea midline, no thyromegaly Respiratory: normal respiratory effort, lungs clear to auscultation (Except mild crackles in the bilateral lower lung newell) Cardiovascular: RRR, no murmur, no edema Chest (Breasts): Chest: normal inspection of chest Gastrointestinal (Abdomen): normal bowel sounds, soft, nontender, no hepatosplenomegaly Musculoskeletal: Extremities: extremities normal to inspection; no cyanosis and no clubbing Skin: no rashes, warm and dry Neurologic: moves all extremities and awake; no focal motor deficits Psychiatric: A+Ox3, euthymic affect Lymphatic: no lymphedema Results & Data Results & Data ([facility]) Vital Signs (Past 12 Hours) Vital Signs Temp Pulse Pulse Resp BP Pulse Ox 07/20/21 08:00 83 07/20/21 07:28 36.7 C 75 20 102/70 90 07/20/21 03:00 36.8 C 79 18 131/79 91 Laboratory Results 07/20/21 07/20/21 07/20/21 Range/Units 16:58 11:38 07:27 WBC (4.8-10.8) K/uL RBC (4.7-6.1) M/uL Hgb (14.0-18.0) g/dL Hct (42-52) % MCV (80-100) fL MCH (25-34) pg MCHC (32-36) g/dL RDW Std Deviation (36.4-46.3) fL RDW Coeff of Gerardo (11.5-14.5) % Plt Count (130-400) K/uL MPV (7.4-10.4) fL Immature Gran % (Auto) % Neut % (Auto) % Lymph % (Auto) % Stokes % (Auto) % Eos % (Auto) % Baso % (Auto) % Neut # (Auto) (1.4-6.5) K/uL Lymph # (Auto) (1.2-3.4) K/uL Stokes # (Auto) (0.11-0.59) K/uL Eos # (Auto) (0-0.5) K/uL Baso # (Auto) (0-0.2) K/uL Immature Gran # (Auto) (0.00-0.02) K/uL Sodium (136-145) mmol/L Potassium (3.5-5.1) mmol/L Chloride (98-107) mmol/L Carbon Dioxide (21-32) mmol/L Anion Gap (3-11) BUN (7-18) mg/dl Creatinine (0.6-1.4) mg/dl Est Cr Clr Drug Dosing ml/min Est GFR ( Amer) ml/min Est GFR (Non-Af Amer) ml/min BUN/Creatinine Ratio (10-20) Glucose (70-99) mg/dl POC Glucose 117 H 139 H 195 H (70-99) mg/dl Estimat Average Glucose mg/dl Hemoglobin A1c (4.5-5.6) % Calcium (8.5-10.1) mg/dl Total Bilirubin (0.2-1) mg/dl AST (15-37) U/L ALT (12-78) U/L Alkaline Phosphatase (45-117) U/L Total Protein (6.4-8.2) gm/dl Albumin (3.4-5.0) gm/dl Globulin (2.5-4.0) gm/dl Albumin/Globulin Ratio (0.9-2) Hepatitis C Ab Screen 07/20/21 07/20/21 07/20/21 Range/Units 07:06 07:06 07:06 WBC 5.23 (4.8-10.8) K/uL RBC 4.76 (4.7-6.1) M/uL Hgb 15.7 (14.0-18.0) g/dL Hct 46.5 (42-52) % MCV 97.7 (80-100) fL MCH 33.0 (25-34) pg MCHC 33.8 (32-36) g/dL RDW Std Deviation 51.2 H (36.4-46.3) fL RDW Coeff of Gerardo 14.4 (11.5-14.5) % Plt Count 207 (130-400) K/uL MPV 9.5 (7.4-10.4) fL Immature Gran % (Auto) 0.4 % Neut % (Auto) 77.2 % Lymph % (Auto) 15.5 % Stokes % (Auto) 6.7 % Eos % (Auto) 0.0 % Baso % (Auto) 0.2 % Neut # (Auto) 4.04 (1.4-6.5) K/uL Lymph # (Auto) 0.81 L (1.2-3.4) K/uL Stokes # (Auto) 0.35 (0.11-0.59) K/uL Eos # (Auto) 0.00 (0-0.5) K/uL Baso # (Auto) 0.01 (0-0.2) K/uL Immature Gran # (Auto) 0.02 (0.00-0.02) K/uL Sodium 138 (136-145) mmol/L Potassium 4.5 (3.5-5.1) mmol/L Chloride 107 (98-107) mmol/L Carbon Dioxide 22 (21-32) mmol/L Anion Gap 9.0 (3-11) BUN 35 H (7-18) mg/dl Creatinine 1.13 D (0.6-1.4) mg/dl Est Cr Clr Drug Dosing 63.6 ml/min Est GFR ( Amer) 77.0 ml/min Est GFR (Non-Af Amer) 66.4 ml/min BUN/Creatinine Ratio 30.6 H (10-20) Glucose 203 H (70-99) mg/dl POC Glucose (70-99) mg/dl Estimat Average Glucose 212 mg/dl Hemoglobin A1c 9.0 H (4.5-5.6) % Calcium 9.1 (8.5-10.1) mg/dl Total Bilirubin 0.4 (0.2-1) mg/dl AST 50 H (15-37) U/L ALT 27 (12-78) U/L Alkaline Phosphatase 89 (45-117) U/L Total Protein 7.4 (6.4-8.2) gm/dl Albumin 2.7 L (3.4-5.0) gm/dl Globulin 4.7 H (2.5-4.0) gm/dl Albumin/Globulin Ratio 0.6 L (0.9-2) Hepatitis C Ab Screen 07/20/21 07/20/21 07/20/21 Range/Units 07:06 02:56 02:56 WBC (4.8-10.8) K/uL RBC (4.7-6.1) M/uL Hgb (14.0-18.0) g/dL Hct (42-52) % MCV (80-100) fL MCH (25-34) pg MCHC (32-36) g/dL RDW Std Deviation (36.4-46.3) fL RDW Coeff of Gerardo (11.5-14.5) % Plt Count (130-400) K/uL MPV (7.4-10.4) fL Immature Gran % (Auto) % Neut % (Auto) % Lymph % (Auto) % Stokes % (Auto) % Eos % (Auto) % Baso % (Auto) % Neut # (Auto) (1.4-6.5) K/uL Lymph # (Auto) (1.2-3.4) K/uL Stokes # (Auto) (0.11-0.59) K/uL Eos # (Auto) (0-0.5) K/uL Baso # (Auto) (0-0.2) K/uL Immature Gran # (Auto) (0.00-0.02) K/uL Sodium (136-145) mmol/L Potassium (3.5-5.1) mmol/L Chloride (98-107) mmol/L Carbon Dioxide (21-32) mmol/L Anion Gap (3-11) BUN (7-18) mg/dl Creatinine (0.6-1.4) mg/dl Est Cr Clr Drug Dosing ml/min Est GFR ( Amer) ml/min Est GFR (Non-Af Amer) ml/min BUN/Creatinine Ratio (10-20) Glucose (70-99) mg/dl POC Glucose 328 H* 338 H* (70-99) mg/dl Estimat Average Glucose mg/dl Hemoglobin A1c (4.5-5.6) % Calcium (8.5-10.1) mg/dl Total Bilirubin (0.2-1) mg/dl AST (15-37) U/L ALT (12-78) U/L Alkaline Phosphatase (45-117) U/L Total Protein (6.4-8.2) gm/dl Albumin (3.4-5.0) gm/dl Globulin (2.5-4.0) gm/dl Albumin/Globulin Ratio (0.9-2) Hepatitis C Ab Screen Pending 07/20/21 07/19/21 Range/Units 02:55 22:19 WBC (4.8-10.8) K/uL RBC (4.7-6.1) M/uL Hgb (14.0-18.0) g/dL Hct (42-52) % MCV (80-100) fL MCH (25-34) pg MCHC (32-36) g/dL RDW Std Deviation (36.4-46.3) fL RDW Coeff of Gerardo (11.5-14.5) % Plt Count (130-400) K/uL MPV (7.4-10.4) fL Immature Gran % (Auto) % Neut % (Auto) % Lymph % (Auto) % Stokes % (Auto) % Eos % (Auto) % Baso % (Auto) % Neut # (Auto) (1.4-6.5) K/uL Lymph # (Auto) (1.2-3.4) K/uL Stokes # (Auto) (0.11-0.59) K/uL Eos # (Auto) (0-0.5) K/uL Baso # (Auto) (0-0.2) K/uL Immature Gran # (Auto) (0.00-0.02) K/uL Sodium (136-145) mmol/L Potassium (3.5-5.1) mmol/L Chloride (98-107) mmol/L Carbon Dioxide (21-32) mmol/L Anion Gap (3-11) BUN (7-18) mg/dl Creatinine (0.6-1.4) mg/dl Est Cr Clr Drug Dosing ml/min Est GFR ( Amer) ml/min Est GFR (Non-Af Amer) ml/min BUN/Creatinine Ratio (10-20) Glucose (70-99) mg/dl POC Glucose 402 H* 244 H (70-99) mg/dl Estimat Average Glucose mg/dl Hemoglobin A1c (4.5-5.6) % Calcium (8.5-10.1) mg/dl Total Bilirubin (0.2-1) mg/dl AST (15-37) U/L ALT (12-78) U/L Alkaline Phosphatase (45-117) U/L Total Protein (6.4-8.2) gm/dl Albumin (3.4-5.0) gm/dl Globulin (2.5-4.0) gm/dl Albumin/Globulin Ratio (0.9-2) Hepatitis C Ab Screen PG Care Time/CCT Total # of Minutes Spent Total Time Spent with Patient: Total time spent is greater than 50% in coordination of care (as documented) at patient's floor/unit and/or counseling patient: Coding Level of Care Code 05115 Subseq Hosp Care Lvl 3 Diagnoses Acute respiratory failure with hypoxia J96.01 Pneumonia due to COVID-19 virus U07.1; J12.82 Creatinine elevation R79.89 Klinefelter syndrome Q98.4 Type 2 diabetes mellitus E11.9 Elevated PSA R97.20 Sensorineural hearing loss (SNHL) H90.5 Hypertension I10 Primary testicular hypogonadism E29.1 Hyperlipidemia E78.5 DVT prophylaxis Z29.9 Insomnia G47.00 Elevated lipase R74.8
[2021-07-20] MEDS: MELATONIN 3 MG TAB PO SCH (20:47)
[2021-07-20] MEDS ORDERED: INSULIN GLARGINE SOLOSTAR 100 UNITS/ML 3 ML PEN SC SCH (21:00)
[2021-07-21] MEDS: TAMSULOSIN HCL 0.4 MG CAP PO SCH (07:44)
[2021-07-21] MEDS: dexAMETHasone 6 MG in SYRINGE 0 ML IV SCH (08:03)
[2021-07-21] MEDS: INSULIN HUMAN NPH SC SCH (08:04)
[2021-07-21 08:39] LABS: Hematocrit (blood only) 46.8 % (42-52); Hemoglobin 15.8 g/dL (14.0-18.0); Mean Corpuscular Hgb Conc 33.8 g/dL (32-36); Mean Corpuscular Volume 97.7 fL (80-100); Mean Platelet Volume 9.4 fL (7.4-10.4); Platelet Count 225 K/uL (130-400); RDW Coefficient of Variation 14.3 % (11.5-14.5); RDW Standard Deviation 51.2 fL (36.4-46.3); Red Blood Count 4.79 M/uL (4.7-6.1); White Blood Count 8.95 K/uL (4.8-10.8)
--- NOTE | 2021-07-21 08:43 | Pharmacy Report ---
Pharmacy Glycemic Short Note 2 - Date of Service July 21, 2021 - Glycemic Short BSG Results (Last 24 hours): 07/20/21 07/20/21 07/20/21 11:38 16:58 20:35 POC Glucose 139 H 117 H 136 H 07/21/21 07:36 POC Glucose 137 H OUTPATIENT ANTIDIABETIC REGIMEN: * Metformin 1000mg PO BID * Victoza 1.8mg SQ daily * Empagliflozin 25mg PO Daily ASSESSMENT: 07/21/21 * Pt has received 109 units of insulin over the past 24hrs * 72 units of basal with Lantus (40 units) + NPH (32 units) * 37 units of bolus with NovoLog * BSGs 117-195 mg/dl * Fasting 137mg/dl - continue Lantus (reduced dose of Lantus not received last night, as RN gave original 20 units prior to new order from 2nd shift [facility]) * Blood sugars well controlled, continue NPH w/ IV Dexamethasone and CF/CR 07/20/21 * 70 year old male PMH sensorineural hearing loss, Klinefelter syndrome, prostate cancer and BPH with LUTS, type 2 DM, HTN, HL, primary testicular hypogonadism, with COVID 19 pnx on IV steroids. * Started on Lantus for basal coverage last night, will continue to cover basal needs, and add NPH to cover steroid effects on blood sugars. * Tighten CF/CR for better glycemic control. PLAN FOR INPATIENT GLYCEMIC CONTROL: * Hold outpatient diabetes medications * Basal insulin * Lantus 20 units SQ BID * NPH 32 units (0.4units/kg) SQ daily with IV Dexamethasone (hold if dexamethasone held) * Bolus insulin * NovoLog per scale ACHS or Q6hrs while NPO * Goal Range: Low 110 mg/dL - High 140 mg/dL * Correction Factor: 20 mg/dL/unit * Nutritional / Prandial insulin per carb ratio of 1 unit per 7 grams CHO consumed PLAN FOR DISCHARGE: * A1c 9%, above goal for patient, if patient is compliant with home medications, recommend DC empagliflozin & Victoza and starting basal bolus insulin if patient agreeable. * Support Patient Self-Management Healthy Lifestyle (diet, exercise, and smoking cessation) Disease self-management (SMBG) Prevention of complications (BP, Lipid goals, Immunizations) Consider outpatient Diabetes Self-Management Education & Support
[2021-07-21] MEDS: INSULIN ASPART 100 UNITS/ML 3 ML PEN SC SCH ×4 (08:53→20:34)
[2021-07-21] MEDS: ENOXAPARIN INJ 40 MG/0.4 ML SYR SQ SCH ×2 (08:54→21:48)
[2021-07-21] MEDS: INSULIN GLARGINE SOLOSTAR 100 UNITS/ML 3 ML PEN SC SCH ×2 (08:54→21:54)
[2021-07-21 09:04] LABS: Albumin Level 2.5 gm/dl (3.4-5.0); BUN Creatinine Ratio 30.2 (10-20); C Reactive Protein 5.46 mg/dl (0-0.29); Calcium 8.9 mg/dl (8.5-10.1); Creatinine Clr Calc Pharmacy 74.1 ml/min; Est GFR (African American) 92.6 ml/min; Est GFR (Non-African American) 79.9 ml/min; Magnesium 2.6 mg/dl (1.8-2.4); Potassium 4.2 mmol/L (3.5-5.1)
[2021-07-21 09:05] LABS: Basophils # (auto) 0.03 K/uL (0-0.2); Basophils % (auto) 0.3 %; Echinocytes 1+; Immature Granulocytes # (auto) 0.02 K/uL (0.00-0.02); Immature Granulocytes % (auto) 0.2 %; Lymphocytes % (auto) 7.8 %; Monocytes # (auto) 0.56 K/uL (0.11-0.59); Monocytes % (auto) 6.3 %; Neutrophils # (auto) 7.64 K/uL (1.4-6.5); Neutrophils % (auto) 85.4 %
[2021-07-21 09:07] LABS: Albumin Globulin Ratio 0.5 (0.9-2); Bilirubin,Total 0.5 mg/dl (0.2-1); Globulin 4.6 gm/dl (2.5-4.0); Total Protein 7.1 gm/dl (6.4-8.2)
--- NOTE | 2021-07-21 11:18 | Hospitalist Progress Note ---
Date of Service July 21, 2021 Assessment & Plan (1) Acute respiratory failure with hypoxia: Plan: Pepe Valente is a 70-year-old male with a past medical history of sensorineural hearing loss, Klinefelter syndrome, prostate cancer and BPH with LUTS, type 2 diabetes mellitus, hypertension, primary testicular hypogonadism, and hyperlipidemia who presents with hypoxia 2/2 Covid pneumonia. Acute hypoxic respiratory failure 2/2 COVID-19 pneumonia Symptom onset approximately 8 days prior to admission Still requiring 10 L oxygen mask, but in no respiratory distress Doing very well with proning, getting out of bed to chair, flutter valve, IS -CXR: Underinflated film, bilateral airspace opacities appreciated with cephalization of vasculature. No signs of pleural effusion/pneumothorax. Possible mild pulmonary edema. Patient clinically dry with elevated creatinine/BUN on admission. EKG: Normal sinus rhythm, incomplete right bundle branch block. EKG 04/02/2016 compared, sinus bradycardia at that time with RSR prime/QR pattern in V1 and similar morphology in V3 appreciated. Elevated lipase, trace elevated AST-likely secondary to viral syndrome-improved Troponin negative -CRP 5.4, proBNP normal -Continue prone positioning, continue on flutter valve and incentive spirometry Titrate oxygen to SPO2 greater than 90% Continue dexamethasone 6 mg daily x10-day course Remdesivir/tocilizumab not indicated (2) Pneumonia due to COVID-19 virus: Plan: -Management as discussed in acute hypoxic respiratory failure. (3) Creatinine elevation: Plan: With acute kidney injury-prerenal secondary to dehydration Now improved after gentle IV fluid hydration No further IV fluids needed Follow BMP Holding home lisinopril (4) Klinefelter syndrome: Plan: Klinefelter syndrome Reports gets testosterone injections q. 10 days, is not sure about next required dose but believes it is sometime this week Can be brought in from home-he will ask his to bring it in when due (5) Type 2 diabetes mellitus: Plan: - Hold home metformin, victoza With severe hyperglycemia upon admission with glucose in the 400s likely secondary to corticosteroids-now improved -Hemoglobin A1c uncontrolled at 9.0% Pharmacy consult placed for hyperglycemia management with steroid treatment Continue Lantus and NovoLog and NPH while on steroids (6) Elevated PSA: Plan: Follow clinically for LUTS Tamsulosin 0.4 mg daily Bladder scan per protocol No acute management, may resume outpatient follow-up on discharge (7) Sensorineural hearing loss (SNHL): Plan: Stable, delirium precautions (8) Hypertension: Plan: Discussed with patient, he reports he does not have a diagnosis of hypertension, but notes he is on lisinopril for his diabetes management Lisinopril held for azotemia/YAQUELIN Normotensive (9) Primary testicular hypogonadism: Plan: Testosterone temporarily held, patient typically receives testosterone inje ctions every 10 days (10) Hyperlipidemia: Plan: Atorvastatin temporarily held, resume when LFTs normalize-can resume now Restart home aspirin 81 mg daily which was held on admission (11) Insomnia: Plan: Continue melatonin at bedtime (12) Elevated lipase: Plan: Elevated in the 700s, no abdominal pain Likely secondary to viral infection No clinical signs of pancreatitis Lipase now normal (13) Vitamin D deficiency: Plan: Restart home vitamin D (14) BPH (benign prostatic hyperplasia): Plan: Continue Flomax No acute issues (15) Depression: Plan: Restart home Celexa (16) DVT prophylaxis: Plan: lovenox 40mg BID ppx - Dispo: Continued stay med/Surg, COVID unit - Code status: Full Code Admission and Anticipated Discharge Date Admission Date: July 19, 2021 Subjective Has occasional cough, remains on 10 L and nurse reports that any attempts to wean him down resulted in worsening hypoxia. Denies chest pain or shortness of breath. He is at bed to chair. Appetite is good. Denies abdominal pain. Telemetry with normal sinus rhythm Review of Systems Review of Systems: All systems reviewed & are unremarkable except as noted in HPI & below Physical Exam Constitutional: WD/WN, vitals as above Eyes: + anicteric sclerae Neck: trachea midline, no thyromegaly Respiratory: normal respiratory effort, lungs clear to auscultation (Except mild crackles in the bilateral lower lung newell) Cardiovascular: RRR, no murmur, no edema Chest (Breasts): Chest: normal inspection of chest Gastrointestinal (Abdomen): normal bowel sounds, soft, nontender, no hepatosplenomegaly Musculoskeletal: Extremities: extremities normal to inspection; no cyanosis and no clubbing Skin: no rashes, warm and dry Neurologic: moves all extremities and awake; no focal motor deficits Psychiatric: A+Ox3, euthymic affect Lymphatic: no lymphedema Results & Data Results & Data ([facility]) Vital Signs (Past 12 Hours) Vital Signs Temp Pulse Pulse Resp BP Pulse Ox 07/21/21 07:35 36.8 C 72 24 98/56 L 90 07/21/21 05:35 36.6 C 73 22 111/70 91 07/21/21 00:00 70 07/20/21 23:25 36.6 C 72 26 H 102/63 92 Laboratory Results 07/21/21 07/21/21 07/21/21 Range/Units 20:29 16:22 11:38 WBC (4.8-10.8) K/uL RBC (4.7-6.1) M/uL Hgb (14.0-18.0) g/dL Hct (42-52) % MCV (80-100) fL MCH (25-34) pg MCHC (32-36) g/dL RDW Std Deviation (36.4-46.3) fL RDW Coeff of Gerardo (11.5-14.5) % Plt Count (130-400) K/uL MPV (7.4-10.4) fL Immature Gran % (Auto) % Neut % (Auto) % Lymph % (Auto) % [place] % (Auto) % Eos % (Auto) % Baso % (Auto) % Neut # (Auto) (1.4-6.5) K/uL Lymph # (Auto) (1.2-3.4) K/uL [place] # (Auto) (0.11-0.59) K/uL Eos # (Auto) (0-0.5) K/uL Baso # (Auto) (0-0.2) K/uL Immature Gran # (Auto) (0.00-0.02) K/uL Echinocytes Sodium (136-145) mmol/L Potassium (3.5-5.1) mmol/L Chloride (98-107) mmol/L Carbon Dioxide (21-32) mmol/L Anion Gap (3-11) BUN (7-18) mg/dl Creatinine (0.6-1.4) mg/dl Est Cr Clr Drug Dosing ml/min Est GFR ( Amer) ml/min Est GFR (Non-Af Amer) ml/min BUN/Creatinine Ratio (10-20) Glucose (70-99) mg/dl POC Glucose Pending 181 H 187 H (70-99) mg/dl Calcium (8.5-10.1) mg/dl Magnesium (1.8-2.4) mg/dl Total Bilirubin (0.2-1) mg/dl AST (15-37) U/L ALT (12-78) U/L Alkaline Phosphatase (45-117) U/L C-Reactive Protein (0-0.29) mg/dl NT-Pro-B Natriuret Pep (0-900) pg/ml Total Protein (6.4-8.2) gm/dl Albumin (3.4-5.0) gm/dl Globulin (2.5-4.0) gm/dl Albumin/Globulin Ratio (0.9-2) Lipase (73-393) U/L Procalcitonin (0-0.5) ng/ml 07/21/21 07/21/21 07/21/21 Range/Units 07:36 07:25 07:25 WBC (4.8-10.8) K/uL RBC (4.7-6.1) M/uL Hgb (14.0-18.0) g/dL Hct (42-52) % MCV (80-100) fL MCH (25-34) pg MCHC (32-36) g/dL RDW Std Deviation (36.4-46.3) fL RDW Coeff of Gerardo (11.5-14.5) % Plt Count (130-400) K/uL MPV (7.4-10.4) fL Immature Gran % (Auto) % Neut % (Auto) % Lymph % (Auto) % [place] % (Auto) % Eos % (Auto) % Baso % (Auto) % Neut # (Auto) (1.4-6.5) K/uL Lymph # (Auto) (1.2-3.4) K/uL [place] # (Auto) (0.11-0.59) K/uL Eos # (Auto) (0-0.5) K/uL Baso # (Auto) (0-0.2) K/uL Immature Gran # (Auto) (0.00-0.02) K/uL Echinocytes Sodium 140 (136-145) mmol/L Potassium 4.2 (3.5-5.1) mmol/L Chloride 109 H (98-107) mmol/L Carbon Dioxide 24 (21-32) mmol/L Anion Gap 7.0 (3-11) BUN 29 H (7-18) mg/dl Creatinine 0.97 (0.6-1.4) mg/dl Est Cr Clr Drug Dosing 74.1 ml/min Est GFR ( Amer) 92.6 ml/min Est GFR (Non-Af Amer) 79.9 ml/min BUN/Creatinine Ratio 30.2 H (10-20) Glucose 138 H (70-99) mg/dl POC Glucose 137 H (70-99) mg/dl Calcium 8.9 (8.5-10.1) mg/dl Magnesium 2.6 H (1.8-2.4) mg/dl Total Bilirubin 0.5 (0.2-1) mg/dl AST 44 H (15-37) U/L ALT 24 (12-78) U/L Alkaline Phosphatase 92 (45-117) U/L C-Reactive Protein 5.46 H (0-0.29) mg/dl NT-Pro-B Natriuret Pep 202 (0-900) pg/ml Total Protein 7.1 (6.4-8.2) gm/dl Albumin 2.5 L (3.4-5.0) gm/dl Globulin 4.6 H (2.5-4.0) gm/dl Albumin/Globulin Ratio 0.5 L (0.9-2) Lipase 346 (73-393) U/L Procalcitonin 0.36 (0-0.5) ng/ml 07/21/21 07/20/21 Range/Units 07:25 20:35 WBC 8.95 (4.8-10.8) K/uL RBC 4.79 (4.7-6.1) M/uL Hgb 15.8 (14.0-18.0) g/dL Hct 46.8 (42-52) % MCV 97.7 (80-100) fL MCH 33.0 (25-34) pg MCHC 33.8 (32-36) g/dL RDW Std Deviation 51.2 H (36.4-46.3) fL RDW Coeff of Gerardo 14.3 (11.5-14.5) % Plt Count 225 (130-400) K/uL MPV 9.4 (7.4-10.4) fL Immature Gran % (Auto) 0.2 % Neut % (Auto) 85.4 % Lymph % (Auto) 7.8 % [place] % (Auto) 6.3 % Eos % (Auto) 0.0 % Baso % (Auto) 0.3 % Neut # (Auto) 7.64 H (1.4-6.5) K/uL Lymph # (Auto) 0.70 L (1.2-3.4) K/uL [place] # (Auto) 0.56 (0.11-0.59) K/uL Eos # (Auto) 0.00 (0-0.5) K/uL Baso # (Auto) 0.03 (0-0.2) K/uL Immature Gran # (Auto) 0.02 (0.00-0.02) K/uL Echinocytes 1+ Sodium (136-145) mmol/L Potassium (3.5-5.1) mmol/L Chloride (98-107) mmol/L Carbon Dioxide (21-32) mmol/L Anion Gap (3-11) BUN (7-18) mg/dl Creatinine (0.6-1.4) mg/dl Est Cr Clr Drug Dosing ml/min Est GFR ( Amer) ml/min Est GFR (Non-Af Amer) ml/min BUN/Creatinine Ratio (10-20) Glucose (70-99) mg/dl POC Glucose 136 H (70-99) mg/dl Calcium (8.5-10.1) mg/dl Magnesium (1.8-2.4) mg/dl Total Bilirubin (0.2-1) mg/dl AST (15-37) U/L ALT (12-78) U/L Alkaline Phosphatase (45-117) U/L C-Reactive Protein (0-0.29) mg/dl NT-Pro-B Natriuret Pep (0-900) pg/ml Total Protein (6.4-8.2) gm/dl Albumin (3.4-5.0) gm/dl Globulin (2.5-4.0) gm/dl Albumin/Globulin Ratio (0.9-2) Lipase (73-393) U/L Procalcitonin (0-0.5) ng/ml PG Care Time/CCT Total # of Minutes Spent Total Time Spent with Patient: Total time spent is greater than 50% in coordination of care (as documented) at patient's floor/unit and/or counseling patient: Coding Level of Care Code 26554 Subseq Hosp Care Lvl 3 Diagnoses Acute respiratory failure with hypoxia J96.01 Pneumonia due to COVID-19 virus U07.1; J12.82 Creatinine elevation R79.89 Klinefelter syndrome Q98.4 Type 2 diabetes mellitus E11.9 Elevated PSA R97.20 Sensorineural hearing loss (SNHL) H90.5 Hypertension I10 Primary testicular hypogonadism E29.1 Hyperlipidemia E78.5 Insomnia G47.00 Elevated lipase R74.8 DVT prophylaxis Z29.9 Vitamin D deficiency E55.9 BPH (benign prostatic hyperplasia) N40.0 Depression F32.9
[2021-07-21] MEDS: MELATONIN 3 MG TAB PO SCH (21:49)
[2021-07-22 07:54] LABS: Hematocrit (blood only) 45.7 % (42-52); Hemoglobin 15.6 g/dL (14.0-18.0); Mean Corpuscular Hemoglobin 33.1 pg (25-34); Mean Corpuscular Hgb Conc 34.1 g/dL (32-36); Mean Corpuscular Volume 96.8 fL (80-100); Mean Platelet Volume 9.2 fL (7.4-10.4); Platelet Count 248 K/uL (130-400); RDW Coefficient of Variation 14.2 % (11.5-14.5); RDW Standard Deviation 50.7 fL (36.4-46.3); Red Blood Count 4.72 M/uL (4.7-6.1); White Blood Count 6.83 K/uL (4.8-10.8)
[2021-07-22] MEDS: ATORVASTATIN 20 MG TAB PO SCH (08:07)
[2021-07-22] MEDS: CHOLECALCIFEROL 1,000 UNITS 25 MCG TAB PO SCH (08:07)
[2021-07-22] MEDS: CITALOPRAM 20 MG TAB PO SCH (08:07)
[2021-07-22] MEDS: ASPIRIN 81 MG ECTAB PO SCH (08:07)
[2021-07-22] MEDS: TAMSULOSIN HCL 0.4 MG CAP PO SCH (08:08)
[2021-07-22] MEDS: MONTELUKAST SODIUM 10 MG TABLET PO SCH (08:08)
[2021-07-22 08:16] LABS: Basophils # (auto) 0.04 K/uL (0-0.2); Basophils % (auto) 0.6 %; Immature Granulocytes # (auto) 0.02 K/uL (0.00-0.02); Immature Granulocytes % (auto) 0.3 %; Lymphocytes # (auto) 0.82 K/uL (1.2-3.4); Monocytes # (auto) 0.47 K/uL (0.11-0.59); Monocytes % (auto) 6.9 %; Neutrophils # (auto) 5.48 K/uL (1.4-6.5); Neutrophils % (auto) 80.2 %
[2021-07-22] MEDS: dexAMETHasone 6 MG in SYRINGE 0 ML IV SCH (08:21)
[2021-07-22 08:32] LABS: Albumin Level 2.5 gm/dl (3.4-5.0); BUN Creatinine Ratio 26.9 (10-20); C Reactive Protein 2.51 mg/dl (0-0.29); Calcium 8.8 mg/dl (8.5-10.1); Creatinine Clr Calc Pharmacy 82.6 ml/min; Est GFR (African American) 102.8 ml/min; Est GFR (Non-African American) 88.7 ml/min; Potassium 4.4 mmol/L (3.5-5.1)
[2021-07-22 08:35] LABS: Albumin Globulin Ratio 0.6 (0.9-2); Bilirubin,Total 0.6 mg/dl (0.2-1); Globulin 4.4 gm/dl (2.5-4.0); Total Protein 6.9 gm/dl (6.4-8.2)
[2021-07-22] MEDS: INSULIN ASPART 100 UNITS/ML 3 ML PEN SC SCH ×4 (08:51→20:43)
[2021-07-22] MEDS: INSULIN GLARGINE SOLOSTAR 100 UNITS/ML 3 ML PEN SC SCH ×2 (08:52→20:42)
[2021-07-22] MEDS: INSULIN HUMAN NPH SC SCH (08:52)
--- NOTE | 2021-07-22 09:12 | Hospitalist Progress Note ---
Date of Service July 22, 2021 Assessment & Plan (1) Acute respiratory failure with hypoxia: Plan: Pepe Valente is a 70-year-old male with a past medical history of sensorineural hearing loss, Klinefelter syndrome, prostate cancer and BPH with LUTS, type 2 diabetes mellitus, hypertension, primary testicular hypogonadism, and hyperlipidemia who presents with hypoxia 2/2 Covid pneumonia. Acute hypoxic respiratory failure 2/2 COVID-19 pneumonia Symptom onset approximately 8 days prior to admission 10 L oxygen mask, no distress at all, speaking in full sentences Doing very well with proning, getting out of bed to chair, flutter valve, IS give Lasix 20mg IV x 1 this morning, see if he responds -CRP 5.4, proBNP normal continue dexamethasone 6mg IV daily, day 4 today Remdesivir/tocilizumab not indicated (2) Pneumonia due to COVID-19 virus: Plan: -Management as discussed in acute hypoxic respiratory failure. dexamethasone day 4 (3) Creatinine elevation: Plan: With acute kidney injury-prerenal secondary to dehydration Now improved after gentle IV fluid hydration No further IV fluids needed Follow BMP Holding home lisinopril try a dose of Lasix 20mg IV today to give negative fluid balance (4) Klinefelter syndrome: Plan: Klinefelter syndrome testosterone 100mg IV given on 07/22, gets this q10 days (5) Type 2 diabetes mellitus: Plan: - Hold home metformin, victoza -Hemoglobin A1c uncontrolled at 9.0% Pharmacy consult placed for hyperglycemia management with steroid treatment Continue Lantus and NovoLog and NPH while on steroids monitor for hypoglycemia, no episodes (6) Elevated PSA: Plan: Follow clinically for LUTS Tamsulosin 0.4 mg daily Bladder scan per protocol No acute management, may resume outpatient follow-up on discharge (7) Sensorineural hearing loss (SNHL): Plan: Stable, delirium precautions (8) Hypertension: Plan: Discussed with patient, he reports he does not have a diagnosis of hypertension, but notes he is on lisinopril for his diabetes management Lisinopril held for azotemia/YAQUELIN Normotensive (9) Primary testicular hypogonadism: Plan: Testosterone 100mg IV on 07/22 (10) Insomnia: Plan: Continue melatonin at bedtime (11) Vitamin D deficiency: Plan: Restart home vitamin D (12) BPH (benign prostatic hyperplasia): Plan: Continue Flomax No acute issues (13) Depression: Plan: Restart home Celexa (14) DVT prophylaxis: Plan: lovenox 40mg BID ppx - Dispo: Continued stay med/Surg, COVID unit - Code status: Full Code Admission and Anticipated Discharge Date Admission Date: July 19, 2021 Subjective patient doing well this morning, no dyspnea at rest, ate all of his breakfast, had some nausea but it went away still waiting on having a BM, will try Miralax he needs his testosterone IM, I ordered it through pharmacy, he takes it every 10 days + cough, little sputum production I reviewed chart and labs discussed that hopefully we can get his oxygen levels down by end of the week Review of Systems Review of Systems: All systems reviewed & are unremarkable except as noted in Subjective Constitutional: + fatigue and + weakness; no fever Respiratory: + cough and + dyspnea on exertion; no dyspnea Cardiovascular: no chest pain Gastrointestinal: + nausea and + constipation; no abdominal pain, no vomiting and no diarrhea/loose stools Physical Exam Constitutional: well developed, well nourished, + ill appearing and comfortable; no acute distress Neck: trachea midline, no thyromegaly Respiratory: normal respiratory effort and + cough; no respiratory distress and no labored breathing Auscultation: lungs clear to auscultation bilaterally; no crackles and no wheezes Cardiovascular: RRR, no murmur, no edema Gastrointestinal (Abdomen): normal bowel sounds, soft, nontender, no hepatosplenomegaly Musculoskeletal: no cyanosis or clubbing, extremities motor strength 5/5 Skin: no rashes, warm and dry Neurologic: normal touch/pain/proprioception, CN's II-XI intact bilaterally, moves all extremities and awake; no focal motor deficits Psychiatric: A+Ox3, euthymic affect Results & Data Results & Data ([facility]) Vital Signs (Past 12 Hours) Vital Signs Temp Pulse Resp BP Pulse Ox 07/22/21 08:03 36.7 C 66 18 109/64 91 07/22/21 05:28 36.5 C 69 20 109/70 92 07/21/21 23:34 36.7 C 59 L 18 100/59 L 94 Laboratory Results Laboratory Results - last 24 hr 07/21/21 07/21/21 07/21/21 07:25 11:38 16:22 WBC RBC Hgb Hct MCV MCH MCHC RDW Std Deviation RDW Coeff of Gerardo Plt Count MPV Immature Gran % (Auto) Neut % (Auto) Lymph % (Auto) [place] % (Auto) Eos % (Auto) Baso % (Auto) Neut # (Auto) Lymph # (Auto) [place] # (Auto) Eos # (Auto) Baso # (Auto) Immature Gran # (Auto) Sodium Potassium Chloride Carbon Dioxide Anion Gap BUN Creatinine Est Cr Clr Drug Dosing Est GFR ( Amer) Est GFR (Non-Af Amer) BUN/Creatinine Ratio Glucose POC Glucose 187 H 181 H Calcium Total Bilirubin AST ALT Alkaline Phosphatase C-Reactive Protein Total Protein Albumin Globulin Albumin/Globulin Ratio Procalcitonin 0.36 07/21/21 07/22/21 07/22/21 20:29 07:22 07:22 WBC 6.83 RBC 4.72 Hgb 15.6 Hct 45.7 MCV 96.8 MCH 33.1 MCHC 34.1 RDW Std Deviation 50.7 H RDW Coeff of Gerardo 14.2 Plt Count 248 MPV 9.2 Immature Gran % (Auto) 0.3 Neut % (Auto) 80.2 Lymph % (Auto) 12.0 [place] % (Auto) 6.9 Eos % (Auto) 0.0 Baso % (Auto) 0.6 Neut # (Auto) 5.48 Lymph # (Auto) 0.82 L [place] # (Auto) 0.47 Eos # (Auto) 0.00 Baso # (Auto) 0.04 Immature Gran # (Auto) 0.02 Sodium 141 Potassium 4.4 Chloride 111 H Carbon Dioxide 24 Anion Gap 6.0 BUN 23 H Creatinine 0.87 Est Cr Clr Drug Dosing 82.6 Est GFR ( Amer) 102.8 Est GFR (Non-Af Amer) 88.7 BUN/Creatinine Ratio 26.9 H Glucose 75 POC Glucose 88 Calcium 8.8 Total Bilirubin 0.6 AST 37 ALT 21 Alkaline Phosphatase 93 C-Reactive Protein 2.51 H Total Protein 6.9 Albumin 2.5 L Globulin 4.4 H Albumin/Globulin Ratio 0.6 L Procalcitonin 07/22/21 08:25 WBC RBC Hgb Hct MCV MCH MCHC RDW Std Deviation RDW Coeff of Gerardo Plt Count MPV Immature Gran % (Auto) Neut % (Auto) Lymph % (Auto) [place] % (Auto) Eos % (Auto) Baso % (Auto) Neut # (Auto) Lymph # (Auto) [place] # (Auto) Eos # (Auto) Baso # (Auto) Immature Gran # (Auto) Sodium Potassium Chloride Carbon Dioxide Anion Gap BUN Creatinine Est Cr Clr Drug Dosing Est GFR ( Amer) Est GFR (Non-Af Amer) BUN/Creatinine Ratio Glucose POC Glucose 80 Calcium Total Bilirubin AST ALT Alkaline Phosphatase C-Reactive Protein Total Protein Albumin Globulin Albumin/Globulin Ratio Procalcitonin Medications Administered Current Inpatient Medications Aspirin (Aspirin 81 Mg Ectab) 81 mg PO DAILY [facility] Stop: 08/21/21 08:59 Last Admin: 07/22/21 08:07 Dose: 81 mg Documented by: Atorvastatin Calcium (Atorvastatin 20 Mg Tab) 20 mg PO QAM [facility] Stop: 08/21/21 08:59 Last Admin: 07/22/21 08:07 Dose: 20 mg Documented by: Citalopram Hydrobromide (Citalopram 20 Mg Tab) 20 mg PO QAM [facility] Stop: 08/21/21 08:59 Last Admin: 07/22/21 08:07 Dose: 20 mg Documented by: Dextrose (Dextrose 50% 50 Ml Syringe) 25 - 50 ml IV UD PRN; Protocol PRN Reason: Hypoglycemia Protocol Stop: 08/18/21 21:51 Enoxaparin Sodium (Enoxaparin Inj 40 Mg/0.4 Ml Syr) 40 mg SQ Q12H [facility] Stop: 08/18/21 21:59 Last Admin: 07/21/21 21:48 Dose: 40 mg Documented by: Glucagon (Glucagon For Inj 1 Mg Vial) 1 mg SQ UD PRN; Protocol PRN Reason: Hypoglycemia Protocol Stop: 08/18/21 21:51 Glucose (Glucose 10 Tabs/Tube) 4 - 8 tabs PO UD PRN; Protocol PRN Reason: Hypoglycemia Protocol Stop: 08/18/21 21:51 Glucose (Glucose 40% Gel 15 Gm Tube) 15 - 30 gm PO UD PRN; Protocol PRN Reason: Hypoglycemia Protocol Stop: 08/18/21 21:51 Dexamethasone 6 mg/ Syringe 1.5 mls @ 1 mls/min IV DAILY [facility] Stop: 07/30/21 08:59 Last Admin: 07/22/21 08:21 Dose: 1 mls/min Documented by: Insulin Aspart (Insulin Aspart 100 Units/Ml 3 Ml Pen) 0 units SC ACHS [facility] Stop: 08/18/21 21:59 Last Admin: 07/22/21 08:51 Dose: 4 units Documented by: Insulin Glargine (Insulin Glargine Solostar 100 Units/Ml 3 Ml Pen) 0 units SC BID [facility]; Protocol Stop: 08/20/21 08:59 Last Admin: 07/22/21 08:52 Dose: 10 units Documented by: Insulin Human NPH (Insulin Human Nph) 32 units SC DAILY [facility] Stop: 08/19/21 08:59 Last Admin: 07/22/21 08:52 Dose: 32 units Documented by: Melatonin (Melatonin 3 Mg Tab) 3 mg PO HS [facility] Stop: 08/19/21 20:59 Last Admin: 07/21/21 21:49 Dose: 3 mg Documented by: Miscellaneous (Carbohydrates For Hypoglycemia ) 15 - 30 gm PO UD PRN PRN Reason: Hypoglycemia Protocol Stop: 08/18/21 21:51 Miscellaneous Information (Pharmacy Glycemic Mgmt Consult) 1 ea N/A UD PRN; Protocol PRN Reason: Consult Stop: 08/18/21 21:51 Montelukast Sodium (Montelukast Sodium 10 Mg Tablet) 10 mg PO DAILY [facility] Stop: 08/21/21 08:59 Last Admin: 07/22/21 08:08 Dose: Not Given Documented by: Tamsulosin HCl (Tamsulosin Hcl 0.4 Mg Cap) 0.4 mg PO QAM [facility] Stop: 08/19/21 08:59 Last Admin: 07/22/21 08:08 Dose: 0.4 mg Documented by: Testosterone Cypionate (Testosterone Cypionate Im 200 Mg/Ml Vial) 100 mg IM ONE ONE Stop: 07/22/21 09:05 Vitamin D (Cholecalciferol 1,000 Units 25 Mcg Tab) 1,000 units PO QAM [facility] Stop: 08/21/21 08:59 Last Admin: 07/22/21 08:07 Dose: 1,000 units Documented by: PG Care Time/CCT Total # of Minutes Spent Total Time Spent with Patient: Total time spent is greater than 50% in coordination of care (as documented) at patient's floor/unit and/or counseling patient: Coding Level of Care Code 55093 Subseq Hosp Care Lvl 3 Diagnoses Acute respiratory failure with hypoxia J96.01 Pneumonia due to COVID-19 virus U07.1; J12.82 Creatinine elevation R79.89 Klinefelter syndrome Q98.4 Type 2 diabetes mellitus E11.9 Elevated PSA R97.20 Sensorineural hearing loss (SNHL) H90.5 Hypertension I10 Primary testicular hypogonadism E29.1 Insomnia G47.00 Vitamin D deficiency E55.9 BPH (benign prostatic hyperplasia) N40.0 Depression F32.9 DVT prophylaxis Z29.9
[2021-07-22] MEDS ORDERED: FUROSEMIDE 20 MG in SYRINGE 0 ML IV ONE (09:19)
[2021-07-22] MEDS ORDERED: FUROSEMIDE 40 MG/4 ML VIAL IV STA (09:26)
[2021-07-22] MEDS ORDERED: TESTOSTERONE CYPIONATE IM 200 MG/ML VIAL IM ONE (10:00)
--- NOTE | 2021-07-22 10:54 | Pharmacy Report ---
Pharmacy Glycemic Short Note 2 - Date of Service July 22, 2021 - Glycemic Short BSG Results (Last 24 hours): 07/21/21 07/21/21 07/21/21 11:38 16:22 20:29 Glucose POC Glucose 187 H 181 H 88 07/22/21 07/22/21 07:22 08:25 Glucose 75 POC Glucose 80 OUTPATIENT ANTIDIABETIC REGIMEN: * Metformin 1000mg PO BID * Victoza 1.8mg SQ daily * Empagliflozin 25mg PO Daily ASSESSMENT: 07/22/21 * Patient's BSGs yesterday were [phone] mg/dL. Fasting today is 80 mg/dL. * Patient received 86 units of insulin yesterday with 62 units of basal (30 units of Lantus + 32 units of NPH) and 24 units of bolus. * For Lantus, will reduce to 20 units daily as fasting trending down significantly. * Continue NPH as BSGs are just slightly elevated. Continue Novolog x 1 more day then adjust as appropriate as prior day BSGs were all within goal range. 07/21/21 * Pt has received 109 units of insulin over the past 24hrs * 72 units of basal with Lantus (40 units) + NPH (32 units) * 37 units of bolus with NovoLog * BSGs 117-195 mg/dl * Fasting 137mg/dl - continue Lantus (reduced dose of Lantus not received last night, as RN gave original 20 units prior to new order from 2nd shift [facility]) * Blood sugars well controlled, continue NPH w/ IV Dexamethasone and CF/CR 07/20/21 * 70 year old male PMH sensorineural hearing loss, Klinefelter syndrome, prostate cancer and BPH with LUTS, type 2 DM, HTN, HL, primary testicular hypogonadism, with COVID 19 pnx on IV steroids. * Started on Lantus for basal coverage last night, will continue to cover basal needs, and add NPH to cover steroid effects on blood sugars. * Tighten CF/CR for better glycemic control. PLAN FOR INPATIENT GLYCEMIC CONTROL: * Hold outpatient diabetes medications * Basal insulin * Lantus 10 units SQ BID * NPH 32 units (0.4units/kg) SQ daily with IV Dexamethasone (hold if dexamethasone held) * Bolus insulin * NovoLog per scale ACHS or Q6hrs while NPO * Goal Range: Low 110 mg/dL - High 140 mg/dL * Correction Factor: 20 mg/dL/unit * Nutritional / Prandial insulin per carb ratio of 1 unit per 7 grams CHO consumed PLAN FOR DISCHARGE: * A1c 9%, above goal for patient, if patient is compliant with home medications recommend initiation of insulin. Dosing TBD. * Support Patient Self-Management Healthy Lifestyle (diet, exercise, and smoking cessation) Disease self-management (SMBG) Prevention of complications (BP, Lipid goals, Immunizations) Consider outpatient Diabetes Self-Management Education & Support
[2021-07-22] MEDS: ENOXAPARIN INJ 40 MG/0.4 ML SYR SQ SCH ×2 (11:19→20:41)
[2021-07-22] MEDS: POLYETHYLENE (MIRALAX) 17 GM PACK PO SCH (11:19)
[2021-07-22] MEDS: MELATONIN 3 MG TAB PO SCH (20:41)
[2021-07-23] MEDS: MONTELUKAST SODIUM 10 MG TABLET PO SCH (08:42)
[2021-07-23] MEDS: dexAMETHasone 6 MG in SYRINGE 0 ML IV SCH (08:42)
[2021-07-23] MEDS: CHOLECALCIFEROL 1,000 UNITS 25 MCG TAB PO SCH (08:43)
[2021-07-23] MEDS: ATORVASTATIN 20 MG TAB PO SCH (08:43)
[2021-07-23] MEDS: ASPIRIN 81 MG ECTAB PO SCH (08:43)
[2021-07-23] MEDS: TAMSULOSIN HCL 0.4 MG CAP PO SCH (08:44)
[2021-07-23] MEDS: CITALOPRAM 20 MG TAB PO SCH (08:44)
[2021-07-23] MEDS: INSULIN HUMAN NPH SC SCH (08:45)
[2021-07-23] MEDS: INSULIN GLARGINE SOLOSTAR 100 UNITS/ML 3 ML PEN SC SCH ×2 (08:46→21:26)
[2021-07-23] MEDS: INSULIN ASPART 100 UNITS/ML 3 ML PEN SC SCH ×4 (08:48→20:16)
[2021-07-23] MEDS: POLYETHYLENE (MIRALAX) 17 GM PACK PO SCH (08:49)
[2021-07-23] MEDS: ENOXAPARIN INJ 40 MG/0.4 ML SYR SQ SCH ×2 (09:19→20:18)
[2021-07-23] MEDS ORDERED: FUROSEMIDE 20 MG in SYRINGE 0 ML IV ONE (09:57)
--- NOTE | 2021-07-23 09:58 | Hospitalist Progress Note ---
Date of Service July 23, 2021 Assessment & Plan (1) Acute respiratory failure with hypoxia: Plan: Pepe Valente is a 70-year-old male with a past medical history of sensorineural hearing loss, Klinefelter syndrome, prostate cancer and BPH with LUTS, type 2 diabetes mellitus, hypertension, primary testicular hypogonadism, and hyperlipidemia who presents with hypoxia 2/2 Covid pneumonia. Acute hypoxic respiratory failure 2/2 COVID-19 pneumonia Symptom onset approximately 8 days prior to admission down to 6L oxygen mask, no distress at all, speaking in full sentences Doing very well with proning, getting out of bed to chair, flutter valve, IS good response to Lasix 20mg IV on 07/22, repeat today continue dexamethasone 6mg IV daily, day 5 today, change to PO on discharge Remdesivir/tocilizumab not indicated (2) Pneumonia due to COVID-19 virus: Plan: -Management as discussed in acute hypoxic respiratory failure. dexamethasone day 5 (3) Creatinine elevation: Plan: With acute kidney injury-prerenal secondary to dehydration Now improved after gentle IV fluid hydration No further IV fluids needed Follow BMP Holding home lisinopril lasix again today for negative fluid balance, he is eating and drinking well (4) Klinefelter syndrome: Plan: Klinefelter syndrome testosterone 100mg IV given on 07/22, gets this q10 days (5) Type 2 diabetes mellitus: Plan: - Hold home metformin, victoza -Hemoglobin A1c uncontrolled at 9.0% Pharmacy consult placed for hyperglycemia management with steroid treatment Continue Lantus and NovoLog and NPH while on steroids monitor for hypoglycemia, no episodes d/w beauty sales consultant, will use Lantus on discharge (6) Elevated PSA: Plan: Follow clinically for LUTS Tamsulosin 0.4 mg daily Bladder scan per protocol No acute management, may resume outpatient follow-up on discharge (7) Sensorineural hearing loss (SNHL): Plan: Stable, delirium precautions (8) Hypertension: Plan: Discussed with patient, he reports he does not have a diagnosis of hypertension, but notes he is on lisinopril for his diabetes management Lisinopril held for azotemia/YAQUELIN Normotensive (9) Primary testicular hypogonadism: Plan: Testosterone 100mg IV on 07/22 (10) Insomnia: Plan: Continue melatonin at bedtime (11) Vitamin D deficiency: Plan: Restart home vitamin D (12) BPH (benign prostatic hyperplasia): Plan: Continue Flomax No acute issues (13) Depression: Plan: Restart home Celexa (14) DVT prophylaxis: Plan: lovenox 40mg BID ppx - Dispo: Continued stay med/Surg, COVID unit - Code status: Full Code Admission and Anticipated Discharge Date Admission Date: July 19, 2021 Subjective patient sitting up in a chair, breathing comfortably has an intermittent dry cough, not bothering him too much can lay prone most of the time when he is in bed eating fairly well, still no BM with the Miralax great response to Lasix yesterday, will give another dose today, check labs tomorrow titrated him down to 6L from 10L, saturations 93% updated RN about plan, continue to try to wean oxygen Review of Systems Review of Systems: All systems reviewed & are unremarkable except as noted in Subjective Respiratory: + cough and + dyspnea on exertion; no dyspnea Cardiovascular: no chest pain and no edema Gastrointestinal: + constipation Physical Exam Constitutional: well developed, well nourished, + ill appearing and comfortable; no acute distress Neck: trachea midline, no thyromegaly Respiratory: normal respiratory effort and + cough; no respiratory distress and no labored breathing Auscultation: lungs clear to auscultation bilaterally; no crackles and no wheezes Cardiovascular: RRR, no murmur, no edema Gastrointestinal (Abdomen): normal bowel sounds, soft, nontender, no hepatosplenomegaly Musculoskeletal: no cyanosis or clubbing, extremities motor strength 5/5 Skin: no rashes, warm and dry Neurologic: normal touch/pain/proprioception, CN's II-XI intact bilaterally, moves all extremities and awake; no focal motor deficits Psychiatric: A+Ox3, euthymic affect Results & Data Results & Data ([facility]) Vital Signs (Past 12 Hours) Vital Signs Temp Pulse Pulse Resp BP BP Pulse Ox 07/23/21 07:17 36.7 C 77 18 112/69 94 07/22/21 23:13 36.7 C 73 18 106/66 94 07/22/21 23:00 94 H Medications Administered Current Inpatient Medications Aspirin (Aspirin 81 Mg Ectab) 81 mg PO DAILY [facility] Stop: 08/21/21 08:59 Last Admin: 07/23/21 08:43 Dose: 81 mg Documented by: Atorvastatin Calcium (Atorvastatin 20 Mg Tab) 20 mg PO QAM [facility] Stop: 08/21/21 08:59 Last Admin: 07/23/21 08:43 Dose: 20 mg Documented by: Citalopram Hydrobromide (Citalopram 20 Mg Tab) 20 mg PO QAM [facility] Stop: 08/21/21 08:59 Last Admin: 07/23/21 08:44 Dose: 20 mg Documented by: Dextrose (Dextrose 50% 50 Ml Syringe) 25 - 50 ml IV UD PRN; Protocol PRN Reason: Hypoglycemia Protocol Stop: 08/18/21 21:51 Enoxaparin Sodium (Enoxaparin Inj 40 Mg/0.4 Ml Syr) 40 mg SQ Q12H [facility] Stop: 08/18/21 21:59 Last Admin: 07/23/21 09:19 Dose: 40 mg Documented by: Glucagon (Glucagon For Inj 1 Mg Vial) 1 mg SQ UD PRN; Protocol PRN Reason: Hypoglycemia Protocol Stop: 08/18/21 21:51 Glucose (Glucose 10 Tabs/Tube) 4 - 8 tabs PO UD PRN; Protocol PRN Reason: Hypoglycemia Protocol Stop: 08/18/21 21:51 Glucose (Glucose 40% Gel 15 Gm Tube) 15 - 30 gm PO UD PRN; Protocol PRN Reason: Hypoglycemia Protocol Stop: 08/18/21 21:51 Dexamethasone 6 mg/ Syringe 1.5 mls @ 1 mls/min IV DAILY [facility] Stop: 07/30/21 08:59 Last Admin: 07/23/21 08:42 Dose: 1 mls/min Documented by: Furosemide 20 mg/ Syringe 2 mls @ 4 mls/min IV ONE ONE Stop: 07/23/21 09:58 Insulin Aspart (Insulin Aspart 100 Units/Ml 3 Ml Pen) 0 units SC ACHS [facility] Stop: 08/18/21 21:59 Last Admin: 07/23/21 08:48 Dose: 2 units Documented by: Insulin Glargine (Insulin Glargine Solostar 100 Units/Ml 3 Ml Pen) 10 units SC BID [facility]; Protocol Stop: 08/21/21 20:59 Last Admin: 07/23/21 08:46 Dose: 10 units Documented by: Insulin Human NPH (Insulin Human Nph) 32 units SC DAILY [facility] Stop: 08/19/21 08:59 Last Admin: 07/23/21 08:45 Dose: 32 units Documented by: Melatonin (Melatonin 3 Mg Tab) 3 mg PO HS [facility] Stop: 08/19/21 20:59 Last Admin: 07/22/21 20:41 Dose: 3 mg Documented by: Miscellaneous (Carbohydrates For Hypoglycemia ) 15 - 30 gm PO UD PRN PRN Reason: Hypoglycemia Protocol Stop: 08/18/21 21:51 Miscellaneous Information (Pharmacy Glycemic Mgmt Consult) 1 ea N/A UD PRN; Protocol PRN Reason: Consult Stop: 08/18/21 21:51 Montelukast Sodium (Montelukast Sodium 10 Mg Tablet) 10 mg PO DAILY [facility] Stop: 08/21/21 08:59 Last Admin: 07/23/21 08:42 Dose: 10 mg Documented by: Polyethylene Glycol (Polyethylene (Miralax) 17 Gm Pack) 17 gm PO DAILY [facility] Stop: 08/21/21 09:29 Last Admin: 07/23/21 08:49 Dose: 17 gm Documented by: Tamsulosin HCl (Tamsulosin Hcl 0.4 Mg Cap) 0.4 mg PO QAM [facility] Stop: 08/19/21 08:59 Last Admin: 07/23/21 08:44 Dose: 0.4 mg Documented by: Vitamin D (Cholecalciferol 1,000 Units 25 Mcg Tab) 1,000 units PO QAM [facility] Stop: 08/21/21 08:59 Last Admin: 07/23/21 08:43 Dose: 1,000 units Documented by: PG Care Time/CCT Total # of Minutes Spent Total Time Spent with Patient: Total time spent is greater than 50% in coordination of care (as documented) at patient's floor/unit and/or counseling patient: Coding Level of Care Code 92403 Subseq Hosp Care Lvl 3 Diagnoses Acute respiratory failure with hypoxia J96.01 Pneumonia due to COVID-19 virus U07.1; J12.82 Creatinine elevation R79.89 Klinefelter syndrome Q98.4 Type 2 diabetes mellitus E11.9 Elevated PSA R97.20 Sensorineural hearing loss (SNHL) H90.5 Hypertension I10 Primary testicular hypogonadism E29.1 Insomnia G47.00 Vitamin D deficiency E55.9 BPH (benign prostatic hyperplasia) N40.0 Depression F32.9 DVT prophylaxis Z29.9
[2021-07-23] MEDS ORDERED: POTASSIUM CHLORIDE CRTAB 20 MEQ TABCR PO STA (10:06)
[2021-07-23] MEDS ORDERED: FUROSEMIDE 40 MG/4 ML VIAL IV ONE (10:15)
[2021-07-23] MEDS: ACETAMINOPHEN 325 MG TAB PO PRN (20:15)
[2021-07-23] MEDS: CARBOHYDRATES FOR HYPOGLYCEMIA PO PRN ×2 (20:19→23:55)
[2021-07-23] MEDS: MELATONIN 3 MG TAB PO SCH (20:24)
[2021-07-24] MEDS: INSULIN ASPART 100 UNITS/ML 3 ML PEN SC SCH ×4 (00:01→12:53)
[2021-07-24] MEDS: ACETAMINOPHEN 325 MG TAB PO PRN (04:38)
[2021-07-24 06:56] LABS: Hemoglobin 15.9 g/dL (14.0-18.0); Mean Corpuscular Hemoglobin 33.1 pg (25-34); Mean Corpuscular Hgb Conc 34.6 g/dL (32-36); Mean Corpuscular Volume 95.6 fL (80-100); Mean Platelet Volume 9.4 fL (7.4-10.4); Platelet Count 313 K/uL (130-400); Red Blood Count 4.81 M/uL (4.7-6.1); White Blood Count 7.32 K/uL (4.8-10.8)
[2021-07-24 07:40] LABS: BUN Creatinine Ratio 24.7 (10-20); Calcium 8.9 mg/dl (8.5-10.1); Creatinine Clr Calc Pharmacy 79.8 ml/min; Est GFR (African American) 101.4 ml/min; Est GFR (Non-African American) 87.5 ml/min; Magnesium 2.1 mg/dl (1.8-2.4); Potassium 4.2 mmol/L (3.5-5.1)
[2021-07-24] MEDS: dexAMETHasone 6 MG in SYRINGE 0 ML IV SCH (08:41)
[2021-07-24] MEDS: INSULIN HUMAN NPH SC SCH (08:45)
[2021-07-24] MEDS: ASPIRIN 81 MG ECTAB PO SCH (08:46)
[2021-07-24] MEDS: CITALOPRAM 20 MG TAB PO SCH (08:46)
[2021-07-24] MEDS: ATORVASTATIN 20 MG TAB PO SCH (08:47)
[2021-07-24] MEDS: ENOXAPARIN INJ 40 MG/0.4 ML SYR SQ SCH (08:47)
[2021-07-24] MEDS: CHOLECALCIFEROL 1,000 UNITS 25 MCG TAB PO SCH (08:47)
[2021-07-24] MEDS: TAMSULOSIN HCL 0.4 MG CAP PO SCH (08:47)
[2021-07-24] MEDS: POLYETHYLENE (MIRALAX) 17 GM PACK PO SCH (08:48)
[2021-07-24] MEDS: MONTELUKAST SODIUM 10 MG TABLET PO SCH (08:49)
[2021-07-24] MEDS ORDERED: INSULIN GLARGINE SOLOSTAR 100 UNITS/ML 3 ML PEN SC SCH (09:00)
[2021-07-24] MEDS ORDERED: FUROSEMIDE 20 MG in SYRINGE 0 ML IV ONE (09:15)
--- NOTE | 2021-07-24 10:30 | Pharmacy Report ---
Pharmacy Glycemic Short Note 2 - Date of Service July 24, 2021 - Glycemic Short BSG Results (Last 24 hours): 07/23/21 07/23/21 07/23/21 12:05 15:58 15:59 Glucose POC Glucose 101 H 302 H* 311 H* 07/23/21 07/23/21 07/23/21 20:04 20:25 23:49 Glucose POC Glucose 68 L* 70 58 L* 07/24/21 07/24/21 07/24/21 00:10 04:25 06:04 Glucose 69 L POC Glucose 100 H 71 07/24/21 07:22 Glucose POC Glucose 84 OUTPATIENT ANTIDIABETIC REGIMEN: * Metformin 1000mg PO BID * Victoza 1.8mg SQ daily * Empagliflozin 25mg PO Daily ASSESSMENT: 07/24/21 * Patient's BSGs yesterday were [phone] mg/dL. Fasting today is 84 mg/dL. * Patient received 72 units of insulin yesterday with 52 units of basal (20 units of Lantus + 32 units of NPH) and 20 units of bolus. * For Lantus, will reduce to 10 units daily as fasting trending down significantly. * Continue NPH as BSGs are just slightly elevated. Hyperglycemia at dinner time secondary to loose carbohydrate ratio. Tightened. Hypoglycemia at bedtime attributed to CF. Loosened last night and will continue. 07/22/21 * Patient's BSGs yesterday were [phone] mg/dL. Fasting today is 80 mg/dL. * Patient received 86 units of insulin yesterday with 62 units of basal (30 units of Lantus + 32 units of NPH) and 24 units of bolus. * For Lantus, will reduce to 20 units daily as fasting trending down significantly. * Continue NPH as BSGs are just slightly elevated. Continue Novolog x 1 more day then adjust as appropriate as prior day BSGs were all within goal range. 07/21/21 * Pt has received 109 units of insulin over the past 24hrs * 72 units of basal with Lantus (40 units) + NPH (32 units) * 37 units of bolus with NovoLog * BSGs 117-195 mg/dl * Fasting 137mg/dl - continue Lantus (reduced dose of Lantus not received last night, as RN gave original 20 units prior to new order from 2nd shift [facility]) * Blood sugars well controlled, continue NPH w/ IV Dexamethasone and CF/CR 07/20/21 * 70 year old male PMH sensorineural hearing loss, Klinefelter syndrome, prostate cancer and BPH with LUTS, type 2 DM, HTN, HL, primary testicular hypogonadism, with COVID 19 pnx on IV steroids. * Started on Lantus for basal coverage last night, will continue to cover basal needs, and add NPH to cover steroid effects on blood sugars. * Tighten CF/CR for better glycemic control. PLAN FOR INPATIENT GLYCEMIC CONTROL: * Hold outpatient diabetes medications * Basal insulin * Lantus 10 units SQ daily * NPH 32 units (0.4units/kg) SQ daily with IV Dexamethasone (hold if dexamethasone held) * Bolus insulin * NovoLog per scale ACHS or Q6hrs while NPO * Goal Range: Low 110 mg/dL - High 140 mg/dL * Correction Factor: 25 mg/dL/unit * Nutritional / Prandial insulin per carb ratio of 1 unit per 6 grams CHO consumed PLAN FOR DISCHARGE: * A1c 9%, above goal for patient, if patient is compliant with home medications recommend initiation of insulin. Dosing TBD. * Support Patient Self-Management Healthy Lifestyle (diet, exercise, and smoking cessation) Disease self-management (SMBG) Prevention of complications (BP, Lipid goals, Immunizations) Consider outpatient Diabetes Self-Management Education & Support
--- NOTE | 2021-07-24 10:41 | Discharge Summary ---
Date of Service July 24, 2021 Admission HPI Per Admitting Provider Pepe Valente is a 70-year-old Covid-unvaccinated male with a past medical history of sensorineural hearing loss, Klinefelter syndrome, prostate cancer and BPH with LUTS, type 2 diabetes mellitus, hypertension, primary testicular hypogonadism, and hyperlipidemia who presents with hypoxia 2/2 Covid pneumonia. Pepe reports he was diagnosed with COVID yesterday and presented to the ER today at the recommendation of his PCP. Sx began 8 days ago with fatigue, 'slow and sluggish', and night 'took a turn for the worse and started getting chills which worsened over the next 2-3 days.' Endorses sore throat and dry nonproductive cough. Denies nausea/vomiting. Endorses loose diarrhea with no blood or melena. Reports no appetite and 'just can't eat, I'm not hungry.' Endorses shortness of breath while coughing and with exertion, none at rest. Lives with his who is also being admitted for COVID and who passed out in her chair at home. Notes he goes to [facility] [place] who has had several pe ople diagnosed with covid recently. He denies a past history of blood clots, although has been on testosterone therapy for Klinefelter's and notes he has been told that this can make his blood "thicker ". He thinks he is due for shot this week, but does not remember the date. Medical History: Reviewed. T2DM on victoza, metformin, and inuslin aspart. On lisinopril for renal protection, denies hx of HTN. Has Kleinfelters syndrome and takes injections of testosterone every 10 days but does not remember when his next injection is due. Medications: Reviewed. No longer on singular, tried for headache/congestion in the past with no benefit. Surgical History: Reviewed Allergies: Reviewed Social History: No history of lung disease. No tobacco use. 1-3 beers per night, last drink >14 days ago with no withdrawal symtpms. Surrogate decision maker would be ирина Moreira. Code Status: Full Code, discussed with patient Principal Diagnosis COVID 19 pneumonia causing acute hypoxic respiratory failure Discharge Exam Constitutional well developed, well nourished and comfortable; no acute distress Neck trachea midline, no thyromegaly Respiratory normal respiratory effort and + cough; no respiratory distress and no labored breathing Auscultation: lungs clear to auscultation bilaterally; no crackles and no wheezes Cardiovascular RRR, no murmur, no edema Gastrointestinal (Abdomen) normal bowel sounds, soft, nontender, no hepatosplenomegaly Musculoskeletal no cyanosis or clubbing, extremities motor strength 5/5 Skin no rashes, warm and dry Neurologic normal touch/pain/proprioception, CN's II-XI intact bilaterally, moves all extremities and awake; no focal motor deficits Psychiatric A+Ox3, euthymic affect Discharge Data Allergies Allergy/AdvReac Type Severity Reaction Status Date / Time No Known Drug Allergies Allergy Unknown Verified 07/19/21 17:40 Consultations 07/19/21 16:13 ED Decision to Admit Stat Diabetes Follow up Diabetes Follow-up Needed for HgbA1c >9% Hospital Course (1) Acute respiratory failure with hypoxia: Acute hypoxic respiratory failure 2/2 COVID-19 pneumonia Symptom onset approximately 8 days prior to admission down to 2L oxygen mask, no distress at all, speaking in full sentences checked a 2 step, no oxygen needed at rest, 3L on exertion Doing very well with proning, getting out of bed to chair, flutter valve, IS good response to Lasix 20mg IV on 07/22 and 07/23 continue dexamethasone 6mg IV daily, day 6 today, change to 6mg PO on discharge Remdesivir/tocilizumab not indicated arranged home oxygen, finish course of dexamethasone, stay well nourished, well hydrated follow up with PCP (2) Pneumonia due to COVID-19 virus: -Management as discussed in acute hypoxic respiratory failure. dexamethasone day 6, change to PO and complete 4 more days (3) Creatinine elevation: With acute kidney injury-prerenal secondary to dehydration Now improved after gentle IV fluid hydration No further IV fluids needed Follow BMP Holding home lisinopril lasix on 07/22 and 07/23, good response, helped titrate off oxygen (4) Klinefelter syndrome: Klinefelter syndrome testosterone 100mg IV given on 07/22, gets this q10 days (5) Type 2 diabetes mellitus: - Held home metformin, victoza while admitted, resume on discharge -Hemoglobin A1c uncontrolled at 9.0% Pharmacy consult placed for hyperglycemia management with steroid treatment Continue Lantus and NovoLog and NPH while on steroids monitor for hypoglycemia, no episodes d/w diabetic educator, recommend starting Lantus, can follow up with PCP will prescribe NPH insulin 32 units every morning while on dexamethasone, 4 more days (6) Elevated PSA: Follow clinically for LUTS Tamsulosin 0.4 mg daily Bladder scan per protocol No acute management, may resume outpatient follow-up on discharge (7) Sensorineural hearing loss (SNHL): Stable, delirium precautions (8) Hypertension: Discussed with patient, he reports he does not have a diagnosis of hypertension, but notes he is on lisinopril for his diabetes management Lisinopril held for azotemia/YAQUELIN, resume on discharge Normotensive (9) Primary testicular hypogonadism: Testosterone 100mg IV on 07/22 (10) Insomnia: Continue melatonin at bedtime (11) Vitamin D deficiency: Restart home vitamin D (12) BPH (benign prostatic hyperplasia): Continue Flomax No acute issues (13) Depression: Restart home Celexa Total Time Total Time Spent Total Time Spent (In Minutes): 36 minutes Total Time Includes: Examination of the Patient, Discharge Planning and Medication Reconciliation Discharge Plan Discharge Items Patient Disposition: Home - Self-Care Reason For Visit: COVID PNA, YAQUELIN Discharge Diagnosis: COVID 19 pneumonia Acute hypoxic respiratory failure Condition on Discharge: Good Goals: stay well rested, well nourished titrate off oxygen complete course of dexamethasone Activity: Resume your previous activity Non-emergency contact: Primary Care Provider Call non-emergency contact if: you have any medication questions and your symptoms worsen Follow-up/Referrals: Del Malik [Primary Care Provider] - 08/01/21 4:00 pm (Please follow up with Dr. Malik on 08/01/21 at 4:00 pm. Please arrive to the office at 3:45 pm for your appointment. If you are unable to keep this appointment, please call the office to reschedule at [phone].) Addtl Attending Provider Instructions: Medications: - DEXAMETHASONE: 6mg daily for 4 more days to complete 10 days total - NPH INSULIN: 32 units daily, take this in the morning with the dexamethasone, only need to use for 4 days while on the dexamethasone COVID 19 pneumonia, acute hypoxic respiratory failure responded well to dexamethasone, need 4 more days if you normally take Prednisone, do not take the Prednisone while on the dexamethasone you need 3L of oxygen on exertion only, you are fine on room air at rest, so place oxygen on whenever you are up walking, bathing etc. should be able to come off the oxygen in the next week Diabetes: continue home regimen, while you are on the dexamethasone, recommend you give yourself NPH insulin 32 units in the morning at the same time as dexamethasone this helps limit any high blood sugars follow up with PCP in a week Pending Studies at Discharge: No Stand-Alone Forms: [facility], Smoking Cessation Medications and DC Order Prescriptions: Continued (DME) Easy Touch FlipLock Syringe 3 mL 18 gauge x 1 1/2" syringe See Rx Instructions .ROUTE .MEDSUPPLY Qty: 12 RF: 3 (DME) BD Luer-Timothy Syringe 3 mL 18 x 1 1/2" syringe See Rx Instructions .ROUTE .MEDSUPPLY Qty: 10 RF: 3 (DME) BD Integra Syringe 3 mL 22 gauge x 1 1/2" syringe See Rx Instructions .ROUTE .MEDSUPPLY Qty: 12 RF: 3 tamsulosin [Flomax] 0.4 mg capsule 0.4 mg PO DAILY Qty: 90 RF: 3 montelukast 10 mg tablet 10 mg PO DAILY RF: 0 (DME) NovoFine Plus 32 gauge x 1/6" needle See Dose Instructions .ROUTE .MEDSUPPLY Qty: 100 RF: 0 aspirin [Adult Low Dose Aspirin] 81 mg tablet,delayed release (DR/EC) 81 mg PO DAILY RF: 0 Ca-D3-mag pl-ieir-wot-joie-bor [Calcium 600-D3 Plus (mag-zinc)] 600 mg calcium- 800 unit-50 mg tablet 1 tab PO DAILY RF: 0 (DME) OneTouch Ultra Blue Test Strip strip See Dose Instructions .ROUTE .MEDSUPPLY Qty: 10 RF: 0 metformin 500 mg Tablet 1,000 mg PO BIDM RF: 0 atorvastatin 20 mg tablet 20 mg PO QAM RF: 0 citalopram 20 mg tablet 20 mg PO QAM RF: 0 lisinopril 5 mg Tablet 5 mg PO QAM RF: 0 cholecalciferol (vitamin D3) [Vitamin D3] 1,000 unit Capsule 1,000 unit PO QAM RF: 0 Victoza 3-Marvel 0.6 mg/0.1 mL (18 mg/3 mL) pen injector 1.8 mg subcut DAILY RF: 0 Men's Daily Formula 400-20-300 mcg Tablet 1 tab PO QAM RF: 0 yxvob-hbbth-5-wos-vhc-yiudif [krill oil] 080-23-14-50 mg Capsule 1 cap PO QAM RF: 0 azithromycin 250 mg tablet 250 mg PO UD RF: 0 prednisone 20 mg tablet 20 mg PO UD RF: 0 Jardiance 25 mg tablet 25 mg PO DAILY RF: 0 testosterone cypionate 100 mg/mL oil 100 mg IM Q10D RF: 0 Discharge Orders: Discharge Order (Routine); Ordered 07/24/21 Ordered By: Stan Spencer/Other Patient Handouts: A1C, High Blood Sugar (Hyperglycemia), Hypoglycemia (Low Blood Sugar), Managing Type 2 Diabetes Admission Data Admit Date/Time: 07/19/21 17:42 Attending Provider: Stan Clarke Admit Provider: Jose Smith Primary Care Provider: Del Malik Other Interventions: Discharge Summary Assessment (RN) Last Done: 07/24/21 10:50 Coding Level of Care Code D/C DAY MANAGEMENT >30 MINS Diagnoses Acute respiratory failure with hypoxia J96.01 Pneumonia due to COVID-19 virus U07.1; J12.82 Creatinine elevation R79.89 Klinefelter syndrome Q98.4 Type 2 diabetes mellitus E11.9 Elevated PSA R97.20 Sensorineural hearing loss (SNHL) H90.5 Hypertension I10 Primary testicular hypogonadism E29.1 Insomnia G47.00 Vitamin D deficiency E55.9 BPH (benign prostatic hyperplasia) N40.0 Depression F32.9
== END 2021-07-24 15:10 | disposition home or self-care (01) | DRG 177 ==
LOC: ED 13:04 → SUATTDRO 17:42 → 2S 17:42
DX: Z79.899 Other long term (current) drug therapy; Z79.52 Long term (current) use of systemic steroids; F32.9 Major depressive disorder, single episode, unspecified; J12.82 Pneumonia due to coronavirus disease 2019; E86.0 Dehydration; E78.5 Hyperlipidemia, unspecified; H90.5 Unspecified sensorineural hearing loss; U07.1 COVID-19; E11.9 Type 2 diabetes mellitus without complications; E55.9 Vitamin D deficiency, unspecified; I10 Essential (primary) hypertension; N40.0 Benign prostatic hyperplasia without lower urinary tract symptoms; Z85.46 Personal history of malignant neoplasm of prostate; J96.01 Acute respiratory failure with hypoxia; Q98.4 Klinefelter syndrome, unspecified; Z79.890 Hormone replacement therapy; Z79.4 Long term (current) use of insulin; E29.1 Testicular hypofunction; N17.9 Acute kidney failure, unspecified